=== PATIENT | female | born 1955 | race African-American/Black ===

== ENCOUNTER 2023-01-20 13:50 | Inpatient (IN) ==
[2023-01-20] MEDS ORDERED: PROVENTIL NEB TX 0.083% 2.5MG/ 3ML NEB PRN (16:30)
[2023-01-20 17:27] VITALS: TEMP 97.8
[2023-01-20 17:37] LABS: BASOPHILS % (AUTO) 0.4 % (0.2-1.0); EOSINOPHILS # (AUTO) 0.1 x10^3/uL (0.0-0.2); EOSINOPHILS % (AUTO) 1.9 % (0.9-2.9); HEMATOCRIT 34.5 % (36.0-47.0); HEMOGLOBIN 11.6 g/dL (12.0-16.0); MEAN CORPUSCULAR HEMOGLOBIN 29.7 pg (27.0-34.0); MEAN CORPUSCULAR HGB CONC 33.5 g/dL (33.0-35.0); MEAN CORPUSCULAR VOLUME 88.7 fL (80.0-100.0); MEAN PLATELET VOLUME 8.5 fL (7.4-11.0); MONOCYTES # (AUTO) 0.7 x10^3/uL (0.3-0.8); MONOCYTES % (AUTO) 9.3 % (0.0-13.0); NEUTROPHILS # (AUTO) 4.2 x10^3/uL (2.2-4.8); NEUTROPHILS % (AUTO) 60.4 % (42.0-75.0); PLATELET COUNT 287 X10^3/uL (150.0-450.0); RED BLOOD COUNT 3.89 X10^6/uL (3.5-5.4); RED CELL DISTRIBUTION WIDTH 15.3 % (11.6-16.5)
[2023-01-20] MEDS ORDERED: REGLAN TAB 5 MG PO PRN (17:39)
[2023-01-20] MEDS ORDERED: NEURONTIN CAP 100 MG PO SCH ×2 (17:45→21:00)
[2023-01-20 17:54] LABS: ALBUMIN 2.8 g/dL (3.4-5.0); CALCIUM 9.3 mg/dL (8.5-10.1); CARBON DIOXIDE 27.2 mmol/L (21-32); COR CA(FOR HYPOALB) 10.3 mg/dL (8.5-10.1); CREATININE 1.67 mg/dL (0.55-1.02); POTASSIUM 4.3 mmol/L (3.5-5.1)
[2023-01-20] MEDS ORDERED: SOMA TAB 350 MG PO PRN (17:55)
[2023-01-20] MEDS ORDERED: LR 1,000 ML IV 1,000 ML IV SCH (18:00)
[2023-01-20 20:18] VITALS: BMI 33.8
[2023-01-20] MEDS ORDERED: OMNIPAQUE 350 mg/mL 50 mL BTL 50 ML ONE (20:18)
[2023-01-20] MEDS ORDERED: OMNIPAQUE 350 mg/mL 100 mL BTL 100 ML ONE (20:18)
[2023-01-20] MEDS ORDERED: NS 100 ML IV 100 ML ONE (20:18)
[2023-01-20 20:50] VITALS: BP 188/78; PULSE 91; RESP 20; O2SAT 76
[2023-01-20] MEDS ORDERED: BUSPAR PO SCH (21:00)
[2023-01-20] MEDS ORDERED: COREG TAB 25 MG PO SCH (21:00)
[2023-01-20] MEDS ORDERED: DIOVAN TAB 160 MG PO SCH (21:00)
[2023-01-20] MEDS ORDERED: DESYREL PO SCH (21:00)
[2023-01-20] MEDS ORDERED: LIPITOR TAB 40 MG PO SCH (21:00)
[2023-01-20] MEDS ORDERED: NORVASC TAB 5 MG PO SCH (21:00)
--- NOTE | 2023-01-20 23:40 | DR.H&P ---
H&P History & Physical for Day of: H&P Date: 01/20/23 Chief Complaint Chief Complaint: Pain of right leg with multiple non- healing wounds to medial calf and foot. Allergies Allergies Allergy/AdvReac Type Severity Reaction Status Date / Time neisha Allergy Unknown Verified 01/20/23 21:07 neisha flavor Allergy Unknown Verified 01/20/23 21:07 peach Allergy Unknown Verified 01/20/23 21:07 plum Allergy Unknown Verified 01/20/23 21:07 History of Present Illness History of Present Illness: I received a call earlier today about this patient from Dr. Barney Emery in [place], [place]. He presented this 67 year-old female with a two-month history of increasing pain in right leg with non-healing wounds to the right medial calf proximally and distally. Patient has palpable pulse is on the left side but not on the right side at the ankle. She is admitted for IV antibiotics and evaluation for possible peripheral artery intervention of the right leg. Patient with history of recent diagnosis of congestive heart failure had cardiac catheterization in [place]. I will obtain a copy of this procedure. Past Medical History Past Medical History: Anxiety, Arthritis, CHF, Depression, Diabetes, Dyslipidemia, GERD and Hypertension Past Surgical History Surgical History: Other Family History Family Medical History: Diabetes Mellitus, Coronary Artery Disease and Hypertension Social History Does patient currently use any type of tobacco product: No Have you used tobacco products in the last 12 months: No Type of Tobacco Use: None Does any household member use tobacco: No Alcohol Use: None Drug Use: None Medications Home Medications: Home Medications Medication Instructions Recorded Confirmed Type gabapentin 100 mg capsule 300 mg PO HS 01/20/23 01/20/23 History gabapentin 100 mg tablet 100 mg PO BID 01/20/23 01/20/23 History insulin detemir U-100 100 unit/mL 40 unit subcut BID 01/20/23 01/20/23 History (3 mL) subcutaneous pen Labs 01/20/23 17:25 01/20/23 17:25 Labs: 01/20/23 18:30 Leg - Right Wound Gram Stain - Final Laboratory WBC 7.0 X10^3/uL (3.6-10.0) 01/20/23 17:25 RBC 3.89 X10^6/uL (3.5-5.4) 01/20/23 17:25 Hgb 11.6 g/dL (12.0-16.0) L 01/20/23 17: Hct 34.5 % (36.0-47.0) L 01/20/23 17: MCV 88.7 fL (80.0-100.0) 01/20/23 17:25 MCH 29.7 pg (27.0-34.0) 01/20/23: MCHC 33.5 g/dL (33.0-35.0) 01/20/23: RDW 15.3 % (11.6-16.5) 01/20/23: Plt Count 287 X10^3/uL (150.0-450.0) 01/20/23: MPV 8.5 fL (7.4-11.0) 01/20/23: Neut % (Auto) 60.4 % (42.0-75.0) 01/20/23: Lymph % (Auto) 28.0 % (21.0-51.0) 01/20/23 17: [place] % (Auto) 9.3 % (0.0-13.0) 01/20/23: Eos % (Auto) 1.9 % (0.9-2.9) 01/20/23: Baso % (Auto) 0.4 % (0.2-1.0) 01/20/23: Neut # (Auto) 4.2 x10^3/uL (2.2-4.8) 01/20/23: Lymph # (Auto) 2.0 X10^3/uL (1.3-2.9) 01/20/23 17:25 [place] # (Auto) 0.7 x10^3/uL (0.3-0.8) 01/20/23: Eos # (Auto) 0.1 x10^3/uL (0.0-0.2) 01/20/23: Baso # (Auto) 0.0 X10^3/uL (0.0-0.1) 01/20/23 17: Absolute Nucleated RBC 0.0 /100WBC 01/20/23 17:25 Sodium 136 mmol/L (136-145) 01/20/23 17:25 Corrected Sodium 139 mmol/L (136-145) 01/20/23 17:25 Potassium 4.3 mmol/L (3.5-5.1) 01/20/23 17:25 Chloride 101 mmol/L (98-107) 01/20/23 17:25 Carbon Dioxide 27.2 mmol/L (21-32) 01/20/23 17:25 BUN 53 mg/dL (7-18) H 01/20/23 17:25 Creatinine 1.67 mg/dL (0.55-1.02) H 01/20/23 17:25 Est GFR (MDRD) Af Amer 39 (>60) L 01/20/23 17:25 Est GFR (MDRD) Non-Af 33 (>60) L 01/20/23 17:25 Glucose 232 mg/dL (65-99) H 01/20/23 17:25 Calcium 9.3 mg/dL (8.5-10.1) 01/20/23 17:25 Corrected Calcium 10.3 mg/dL (8.5-10.1) H 01/20/23 17:25 Total Bilirubin 0.20 mg/dL (0.2-1.0) 01/20/23 17:25 AST 12 Units/L (15-37) L 01/20/23 17:25 ALT 15 Units/L (12-78) 01/20/23 17:25 Alkaline Phosphatase 150 Units/L (46-116) H 01/20/23 17:25 Total Protein 8.0 g/dL (6.4-8.2) 01/20/23 17:25 Albumin 2.8 g/dL (3.4-5.0) L 01/20/23 17:25 Globulin 5.2 g/dL (2.5-4.5) H 01/20/23 17:25 Albumin/Globulin Ratio 0.5 Ratio (1.1-2.1) L 01/20/23 17:25 Review of Systems Constitutional: See HPI Eyes: No Symptoms Reported ENT: No Symptoms Reported Respiratory: No Symptoms Reported; denies Shortness of Breath Cardiovascular: See HPI; denies Chest Pain Gastrointestinal: No Symptoms Reported Genitourinary: No Symptoms Reported Musculoskeletal: No Symptoms Reported Skin: See HPI Neurological: No Symptoms Reported Physical Exam Vital Signs: Vital Signs Temperature 97.8 F Temperature 97.8 F Pulse Rate [Bilateral Radial] 81 Pulse Rate [Bilateral Radial] 81 Pulse Rate 91 Pulse Rate 82 Pulse Rate 80 Pulse Rate 83 Pulse Rate 80 Pulse Rate 80 Pulse Rate 80 Pulse Rate 81 Pulse Rate 83 Pulse Rate 81 Pulse Rate 81 Respiratory Rate 20 Respiratory Rate 17 Respiratory Rate 11 Respiratory Rate 12 Respiratory Rate 11 Respiratory Rate 19 Respiratory Rate 10 Respiratory Rate 14 Respiratory Rate 14 Respiratory Rate 14 Respiratory Rate 14 Respiratory Rate 14 Blood Pressure [Left Arm] 145/65 Blood Pressure [Left Arm] 145/65 Blood Pressure 188/78 Blood Pressure 178/73 Blood Pressure 145/65 Blood Pressure 145/65 O2 Sat by Pulse Oximetry 76 O2 Sat by Pulse Oximetry 100 O2 Sat by Pulse Oximetry 100 O2 Sat by Pulse Oximetry 99 O2 Sat by Pulse Oximetry 100 O2 Sat by Pulse Oximetry 99 O2 Sat by Pulse Oximetry 100 O2 Sat by Pulse Oximetry 100 O2 Sat by Pulse Oximetry 100 O2 Sat by Pulse Oximetry 96 O2 Sat by Pulse Oximetry 100 O2 Sat by Pulse Oximetry 96 O2 Sat by Pulse Oximetry 100 Vitals 01/20/23 19:16 01/20/23 19:17 01/20/23 19:17 Pulse Rate 83 81 Respiratory Rate 14 10 L Respiratory Depth Respiratory Effort Respiratory Pattern O2 Sat by Pulse Oximetry 100 100 Oxygen Delivery Method Blood Pressure 178/73 Blood Pressure Mean 105 01/20/23 19:30 01/20/23 19:45 01/20/23 20:00 Pulse Rate 80 80 80 Respiratory Rate 19 11 L 12 Respiratory Depth Respiratory Effort Respiratory Pattern O2 Sat by Pulse Oximetry 100 99 100 Oxygen Delivery Method Blood Pressure Blood Pressure Mean 01/20/23 20:00 01/20/23 20:15 01/20/23 20:30 Pulse Rate 80 82 Respiratory Rate 11 L 17 Respiratory Depth Respiratory Effort Respiratory Pattern O2 Sat by Pulse Oximetry 100 100 Oxygen Delivery Method Blood Pressure 188/78 Blood Pressure Mean 112 01/20/23 20:45 01/20/23 20:10 01/20/23 20:10 Pulse Rate 91 H 83 Respiratory Rate 20 Respiratory Depth Normal Respiratory Effort Normal Non-Labored Respiratory Pattern Normal O2 Sat by Pulse Oximetry 76 L 99 Oxygen Delivery Method Room Air Blood Pressure Blood Pressure Mean Oriented: Normal, Time, Person and Place Eyes: Normal Ear: Normal Nose: Normal Throat: Normal Respiratory: Clear Throughout Cardiovascular: Normal and Other (no JVD, palpable pulses left leg including femoral and ankle. Weakly palpable pulse in the right groin and absent pulses right ankle ) : Normal Auscultation: Bowel Sounds: Normal Palpation: Normal Tenderness: Normal Skin: Other (4 cm diameter wound proximal right medial calf with eschar , 3x 3 x 1 cm wound to medial distal calf, open with drainage ) Musculoskeletal: Normal Psychiatric: Normal Mood Description: Anxious Affect: Normal Speech Pattern: Clear Assessment/Plan (1) Atherosclerosis of [place] arteries of extremities with rest pain, right leg: Status: Acute Plan: Patient will be admitted and labs obtained. Will obtain CT angiogram of the aorta with bilateral runoff. This will help plan intervention of the arterial problems of the right leg. At that time will plan debridement of these wounds. In the meantime will continue IV antibiotics. (2) Diabetes mellitus: Qualifiers: Diabetes mellitus type: type 2 Status: Acute Plan: sliding scale insulin, q 6 HR finger stick blood sugars (3) Hypertension: Qualifiers: Hypertension type: essential hypertension Qualified Code(s): I10 - Essential (primary) hypertension Status: Acute Plan: home medicationswell I'm sorry (4) Congestive heart failure (CHF): Status: Acute Plan: home medications, stable . Will obtain copy of catherization recently done in [place]. Review H&P Reviewed: Yes Patient was examined?: Yes
--- NOTE | 2023-01-20 23:46 | NOTE.SOAP ---
Soap Note Note for Day of Date of Exam: 01/20/23 Subjective Data Subjective Data: Patient admitted with severe ischemia of the right leg with non-healing wound . I discussed this adPlease mission with the patient and with her daughters. The patient's sister arrived and talked her into leaving against medical advice. Objective Data Pulse Rate: 91 Respiratory Rate: 20 O2 Sat by Pulse Oximetry: 76 Objective Data: Hgb=12.0, WBC=7.0, Cr=1.67 Assessment Assessment: critical limb threatening ischemia right leg with non-healing wounds Plan Plan: patient left against medical advice.
[2023-01-21] MEDS ORDERED: PROTONIX TAB 40 MG PO SCH (09:00)
[2023-01-21] MEDS ORDERED: MICRO K EXTEN CAP 10 MEQ PO SCH (09:00)
[2023-01-21] MEDS ORDERED: ASPIRIN EC 81 MG PO SCH (09:00)
[2023-01-21] MEDS ORDERED: ALDACTONE TAB 25 MG PO SCH (09:00)
[2023-01-21] MEDS ORDERED: LASIX PO SCH (09:00)
[2023-01-21] MEDS ORDERED: CHLORTHALIDONE PO SCH (09:00)
[2023-01-21] MEDS ORDERED: LINZESS PO SCH (09:00)
[2023-01-21] MEDS ORDERED: FARXIGA PO SCH (09:00)
== END 2023-01-20 20:50 | disposition left against medical advice (07) | DRG 301 ==
LOC: ICU 15:36
PROVIDERS: ADMIT Surgery; ATTEND Surgery
DX: S81.801A Unspecified open wound, right lower leg, initial encounter; I50.9 Heart failure, unspecified; B96.89 Other specified bacterial agents as the cause of diseases classified elsewhere; M79.604 Pain in right leg; X58.XXXA Exposure to other specified factors, initial encounter; K21.9 Gastro-esophageal reflux disease without esophagitis; Y92.9 Unspecified place or not applicable; E78.2 Mixed hyperlipidemia; Z53.29 Procedure and treatment not carried out because of patient's decision for other reasons; I70.221 Atherosclerosis of native arteries of extremities with rest pain, right leg; R26.81 Unsteadiness on feet; E11.65 Type 2 diabetes mellitus with hyperglycemia; I11.0 Hypertensive heart disease with heart failure

== ENCOUNTER 2023-03-18 12:09 | Inpatient (IN) ==
[2023-03-18 12:29] VITALS: BMI 38.4
--- NOTE | 2023-03-18 12:43 | ED.ABDFE ---
HPI Time Seen Time Seen by Provider: 03/18/23 12:42 PCP Primary Care Physician: Nir FP Complaint Doctors Chief Complaint Comments: 67-year-old female presents for evaluation. Patient with history of chronic edema, CHF in the past. Ran out of her diuretic medication recently. Having increasing swelling of her bilateral legs. Being treated for chronic wound of her right foot. Was seen by the wound center today, and sent to the ER for us to get some fluid out of her body. Having episode of shortness of breath at the time. Denies cough, fever, chills. No nausea, vomiting, chest pain, or bladder issues. Lites chronic constipation. Chief Complaint:: Pt states "I've got this fluid to come off me". Pt went to the wound dr this morning and was advised to come to ER to have fluid removed. Pt states the fluid in LEs swells so much that her legs "bust" and cause wounds. Pt states she has fluid in her lower abdomen also which she feels is causing her SOB. Pt c/o pain in LEs today d/t she just left wound care clinic in [place] today. Self Treatment fo Chief Complaint: Pt states she did take her "water Pill" today. COVID-19 Coronavirus risk:travel/contact w/high risk person: No Has patient experienced Coronavirus symptoms: Yes Coronavirus symptoms experienced: Shortness of Breath Reviewed Nurses Notes Review: Yes Source History Provided: Patient Mode of arrival Mode of Arrival: Wheelchair Timing Onset of Chief Complaint: 03/18/23 PMH PMH Past Medical History: Yes Past Medical History: Anxiety, Arthritis, CHF, Depression, Diabetes, Dyslipidemia, Migraines, GERD, Headaches and Hypertension Past Surgical History: Yes Surgical History: Ortho Surgery and Other Past Surgical History Comment: wound care clinic today Family History History of Family Medical Conditions: Yes Family Medical History: Diabetes Mellitus, Cancer, Coronary Artery Disease, Heart Failure and Hypertension Social History Does patient currently use any type of tobacco product: No Have you used tobacco products in the last 12 months: No Type of Tobacco Use: None Does any household member use tobacco: No Alcohol Use: None Do you use any recreational Drugs:: No Lives With: Alone Lives Where: Home Travel Risk Coronavirus risk:travel/contact w/high risk person: No Has patient experienced Coronavirus symptoms: Yes Coronavirus symptoms experienced: Shortness of Breath Infectious screening In the last 2 months have you had wt loss of >10#?: NO Have you had fever, night sweats or hemotysis?: No Have you traveled outside the country in the last 6 months?: No Isolation: Contact ROS Review of Systems Constitutional: No Symptoms Reported Eyes: No Symptoms Reported ENTM: No Symptoms Reported Respiratoy: Short of Breath Cardiovascular: Edema Gastrointestinal/Abdominal: No Symptoms Reported Genitourinary: No Symptoms Reported Neurological: No Symptoms Reported Musculoskeletal: No Symptoms Reported Integumentary: No Symptoms Reported All Other Systems: Reviewed and Negative PE Vital Signs Vitals: Vital Signs Temperature 97.9 F Pulse Rate 65 Respiratory Rate 16 Blood Pressure 164/67 O2 Sat by Pulse Oximetry 99 General General Appearance: Alert and In No Apparent Distress Eyes Eye exam: PERRL and EOMI ENT ENT Exam: Mucous Membranes Moist Neck Neck Exam: Normal Inspection; negative Tenderness Respiratory Respiratory Exam: Normal Lung Sounds Bilat and Other (poulse ox good); negative Accessory Muscle Use or Respiratory Distress Cardiovascular Cardiovascular Exam: Regular Rate, Normal Rhythm and Normal Heart Sounds Abdominal Exam Abdominal Exam: Normal Bowel Sounds and Soft; negative Tenderness Extremeties Extremities Exam: Edema (3+ pitting, bilateral lower extremities) Neurologic Neurological Exam: Alert, Oriented X3 and CN II-XII Intact; negative Motor Sensory Deficit Skin Skin Exam: Warm and Dry COURSE Treatment Treatment: 67-year-old female with worsening peripheral edema past few days. Recently out of her diuretic medications. Patient is stable in no distress. P ulse ox good at rest. Initiated. Patient given IV Lasix, 40 mgs. 1427 -labs show mild anemia, hemoglobin 7.9. Chemistries show mild elevation glucose of 215, patient is a diabetic. BNP is elevated 2380. Chest x-ray shows degree of cardiomegaly with changes consistent with congestive heart failure. Recommend observation admission for further diuresis. Discussed with Dr. Adam, education director today for the hospital, accepts the admission. 1551 -patient provided urine sample, has 10-20 white blood cells per high-power field, consistent with UTI. Will treat with daily IV Rocephin for now. ROR Labs Reviewed Laboratory Results Reviewed?: Yes 03/18/23 13:08 03/18/23 13:08 Laboratory: WBC 6.4 X10^3/uL (3.6-10.0) 03/18/23 13:08 RBC 2.64 X10^6/uL (3.5-5.4) L 03/18/23 13:08 Hgb 7.9 g/dL (12.0-16.0) L 03/18/23 13:08 Hct 24.5 % (36.0-47.0) L 03/18/23 13:08 MCV 92.8 fL (80.0-100.0) 03/18/23 13:08 MCH 29.8 pg (27.0-34.0) 03/18/23 13:08 MCHC 32.1 g/dL (33.0-35.0) L 03/18/23 13:08 RDW 16.7 % (11.6-16.5) H 03/18/23 13:08 Plt Count 306 X10^3/uL (150.0-450.0) 03/18/23 13:08 MPV 7.9 fL (7.4-11.0) 03/18/23 13:08 Neut % (Auto) 76.7 % (42.0-75.0) H 03/18/23 13:08 Lymph % (Auto) 15.3 % (21.0-51.0) L 03/18/23 13:08 [place] % (Auto) 5.5 % (0.0-13.0) 03/18/23 13:08 Eos % (Auto) 1.4 % (0.9-2.9) 03/18/23 13:08 Baso % (Auto) 1.1 % (0.2-1.0) H 03/18/23 13:08 Neut # (Auto) 4.9 x10^3/uL (2.2-4.8) H 03/18/23 13:08 Lymph # (Auto) 1.0 X10^3/uL (1.3-2.9) L 03/18/23 13:08 [place] # (Auto) 0.3 x10^3/uL (0.3-0.8) 03/18/23 13:08 Eos # (Auto) 0.1 x10^3/uL (0.0-0.2) 03/18/23 13:08 Baso # (Auto) 0.1 X10^3/uL (0.0-0.1) 03/18/23 13:08 Absolute Nucleated RBC 0.1 /100WBC 03/18/23 13:08 Sodium 136 mmol/L (136-145) 03/18/23 13:08 Corrected Sodium 139 mmol/L (136-145) 03/18/23 13:08 Potassium 4.7 mmol/L (3.5-5.1) 03/18/23 13:08 Chloride 101 mmol/L (98-107) 03/18/23 13:08 Carbon Dioxide 27.9 mmol/L (21-32) 03/18/23 13:08 BUN 45 mg/dL (7-18) H 03/18/23 13:08 Creatinine 1.47 mg/dL (0.55-1.02) H 03/18/23 13:08 Est GFR (MDRD) Af Amer 46 (>60) L 03/18/23 13:08 Est GFR (MDRD) Non-Af 38 (>60) L 03/18/23 13:08 Glucose 215 mg/dL (65-99) H 03/18/23 13:08 Calcium 8.5 mg/dL (8.5-10.1) 03/18/23 13:08 Corrected Calcium 9.4 mg/dL (8.5-10.1) 03/18/23 13:08 Total Bilirubin 0.40 mg/dL (0.2-1.0) 03/18/23 13:08 AST 8 Units/L (15-37) L 03/18/23 13:08 ALT 19 Units/L (12-78) 03/18/23 13:08 Alkaline Phosphatase 181 Units/L (46-116) H 03/18/23 13:08 Troponin I High Sens 16.0 ng/L (4.0-60.0) 03/18/23 13:08 B-Natriuretic Peptide 2380 pg/mL (0-79) H 03/18/23 13:08 Total Protein 7.3 g/dL (6.4-8.2) 03/18/23 13:08 Albumin 2.9 g/dL (3.4-5.0) L 03/18/23 13:08 Globulin 4.4 g/dL (2.5-4.5) 03/18/23 13:08 Albumin/Globulin Ratio 0.7 Ratio (1.1-2.1) L 03/18/23 13:08 Lipase 110 Units/L (16-77) H 03/18/23 13:08 Specimen Type Clean catch urine 03/18/23 15:11 Urine Color Straw (YELLOW) 03/18/23 15:11 Urine Appearance Hazy (CLEAR) 03/18/23 15:11 Urine pH 6.0 (5.0 - 8.0) 03/18/23 15:11 Ur Specific [place] 1.010 (1.000-1.030) 03/18/23 15:11 Urine Protein 2+ (NEGATIVE) 03/18/23 15:11 Urine Glucose (UA) 3+ (NEGATIVE) 03/18/23 15:11 Urine Ketones Negative (NEGATIVE) 03/18/23 15:11 Urine Blood 2+ (NEGATIVE) 03/18/23 15:11 Urine Nitrite Negative (NEGATIVE) 03/18/23 15:11 Urine Bilirubin Negative (NEGATIVE) 03/18/23 15:11 Urine Urobilinogen Normal (NORMAL) 03/18/23 15:11 Ur Leukocyte Esterase 3+ (NEGATIVE) 03/18/23 15:11 Urine RBC 0-2 /HPF (0-3) 03/18/23 15:11 Urine WBC 10-20 /HPF (0-5) A 03/18/23 15:11 Ur Squamous Epith Cells Rare /HPF (NEGATIVE) 03/18/23 15:11 Urine Bacteria Trace /HPF (NEGATIVE) 03/18/23 15:11 Ur Culture Indicated? Yes/culture set up 03/18/23 15:11 XRAY XRAY Interpreted by: Both X-ray Results: EXAM: CHEST, 1 VIEW HISTORY: H/O CHF; COMPARISON: No relevant prior studies were available at the time of interpretation. TECHNIQUE: CHEST, 1 VIEW FINDINGS: Chest: Lines and tubes: None Mediastinum: Cardiomegaly. Pulmonary vessels: There is pulmonary vascular congestion. Lung [place]: Patchy opacities are seen Pleura: No effusion. No pneumothorax. Bones and soft tissues: No acute osseous or soft tissue abnormality. IMPRESSION: 1. Findings suggest heart failure exacerbation THIS IS AN ELECTRONICALLY VERIFIED FINAL REPORT 03/18/2023 1:14 PM - Electronically signed by Bladimir Lujan MD Opioid Opioid Risk Tool Age ([place] box if 16-45): No History of Preadolescent Sexual Abuse: No Total: 0 Total Score Risk Category: Low Risk Copyright: Unruly BOOGIE predicting aberrant behaviors Discharge Plan Diagnosis Discharge Problem: Acute exacerbation of CHF (congestive heart failure), Exertional dyspnea, Acute UTI Discharge Plan Patient Disposition: 09 ADMITTED INPATIENT Condition: Stable Orders to Discharge Patient Discharge Orders: Transfer (Routine); Ordered 03/18/23 Ordered By: Adalid Prabhakar
[2023-03-18] MEDS ORDERED: LASIX IVP ONE ×2 (12:51→12:54)
[2023-03-18 13:15] LABS: BASOPHILS # (AUTO) 0.1 X10^3/uL (0.0-0.1); BASOPHILS % (AUTO) 1.1 % (0.2-1.0); EOSINOPHILS # (AUTO) 0.1 x10^3/uL (0.0-0.2); EOSINOPHILS % (AUTO) 1.4 % (0.9-2.9); HEMATOCRIT 24.5 % (36.0-47.0); HEMOGLOBIN 7.9 g/dL (12.0-16.0); LYMPHOCYTES % (AUTO) 15.3 % (21.0-51.0); MEAN CORPUSCULAR HEMOGLOBIN 29.8 pg (27.0-34.0); MEAN CORPUSCULAR HGB CONC 32.1 g/dL (33.0-35.0); MEAN CORPUSCULAR VOLUME 92.8 fL (80.0-100.0); MEAN PLATELET VOLUME 7.9 fL (7.4-11.0); MONOCYTES # (AUTO) 0.3 x10^3/uL (0.3-0.8); MONOCYTES % (AUTO) 5.5 % (0.0-13.0); NEUTROPHILS # (AUTO) 4.9 x10^3/uL (2.2-4.8); NEUTROPHILS % (AUTO) 76.7 % (42.0-75.0); PLATELET COUNT 306 X10^3/uL (150.0-450.0); RED BLOOD COUNT 2.64 X10^6/uL (3.5-5.4); RED CELL DISTRIBUTION WIDTH 16.7 % (11.6-16.5); WHITE BLOOD COUNT 6.4 X10^3/uL (3.6-10.0)
--- NOTE | 2023-03-18 13:22 | RAD ---
EXAM:CHEST, 1 VIEWHISTORY:H/O CHF;COMPARISON:No relevant prior studies were available at the time of interpretation.TECHNIQUE:CHEST, 1 VIEWFINDINGS:Chest:Lines and tubes: NoneMediastinum: Cardiomegaly.Pulmonary vessels: There is pulmonary vascular congestion.Lung [place]: Patchy opacities are seenPleura: No effusion. No pneumothorax.Bones and soft tissues: No acute osseous or soft tissue abnormality.IMPRESSION:1. Findings suggest heart failure exacerbationTHIS IS AN ELECTRONICALLY VERIFIED FINAL [id number]/18/2023 1:14 PM - Electronically signed by Bladimir Lujan MD
[2023-03-18 13:44] LABS: ALBUMIN 2.9 g/dL (3.4-5.0); CALCIUM 8.5 mg/dL (8.5-10.1); CARBON DIOXIDE 27.9 mmol/L (21-32); COR CA(FOR HYPOALB) 9.4 mg/dL (8.5-10.1); CREATININE 1.47 mg/dL (0.55-1.02); POTASSIUM 4.7 mmol/L (3.5-5.1); TOTAL PROTEIN 7.3 g/dL (6.4-8.2)
[2023-03-18 15:17] LABS: BILIRUBIN,URINE NEGATIVE (NEGATIVE); BLOOD/HEMOGLOBIN,URINE 2+ (NEGATIVE); GLUCOSE, URINE 3+ (NEGATIVE); KETONES,URINE NEGATIVE (NEGATIVE); LEUKOCYTE ESTERASE ,URINE 3+ (NEGATIVE); NITRITES,URINE NEGATIVE (NEGATIVE); PROTEIN,URINE 2+ (NEGATIVE); UROBILINOGEN,URINE NORMAL (NORMAL)
[2023-03-18 15:28] LABS: APPEARANCE,URINE HAZY (CLEAR); BACTERIA,URINE TRACE /HPF (NEGATIVE); COLOR,URINE STRAW (YELLOW); RBC,URINE 0-2 /HPF (0-3); SQUAMOUS EPITHELIAL CELL,UR RARE /HPF (NEGATIVE)
[2023-03-18] MEDS ORDERED: ROCEPHIN VIAL 1 GRAM IVP STA (15:49)
[2023-03-18] MEDS ORDERED: ROCEPHIN VIAL 1 GRAM ONE (15:53)
[2023-03-18] MEDS ORDERED: CONSULT PHARMACY - POTASSIUM & MAGNESIUM XX SCH ×2 (16:16→18:00)
[2023-03-18] MEDS ORDERED: TESSALON PERLES PO PRN (16:16)
[2023-03-18] MEDS ORDERED: PROVENTIL NEB TX 0.083% 2.5MG/ 3ML IN PRN (16:16)
[2023-03-18] MEDS: ROCEPHIN VIAL 1 GRAM 1 G in NS 100 ML IV 100 ML IV SCH (17:17)
[2023-03-18] MEDS: LASIX IVP SCH (17:17)
[2023-03-18] MEDS: ENTRESTO 24/26 MG TABLET PO SCH ×2 (17:17→20:17)
[2023-03-18 18:05] LABS: BILIRUBIN,URINE NEGATIVE (NEGATIVE); BLOOD/HEMOGLOBIN,URINE 2+ (NEGATIVE); GLUCOSE, URINE 2+ (NEGATIVE); KETONES,URINE NEGATIVE (NEGATIVE); LEUKOCYTE ESTERASE ,URINE 3+ (NEGATIVE); NITRITES,URINE NEGATIVE (NEGATIVE); PROTEIN,URINE 2+ (NEGATIVE); UROBILINOGEN,URINE NORMAL (NORMAL)
[2023-03-18 18:15] LABS: APPEARANCE,URINE HAZY (CLEAR); COLOR,URINE STRAW (YELLOW)
[2023-03-18 18:17] LABS: BACTERIA,URINE TRACE /HPF (NEGATIVE); SQUAMOUS EPITHELIAL CELL,UR RARE /HPF (NEGATIVE); YEAST,URINE RARE /HPF (NEGATIVE)
[2023-03-18] MEDS ORDERED: GLUCOPHAGE ONE (20:04)
[2023-03-18] MEDS: ROXICODONE TAB 15 MG PO PRN (20:15)
[2023-03-18] MEDS: COREG TAB 25 MG PO SCH (20:15)
[2023-03-18] MEDS: PROVENTIL NEB TX 0.083% 2.5MG/ 3ML NEB PRN (20:15)
[2023-03-18] MEDS: BUSPAR PO SCH (20:16)
[2023-03-18] MEDS: LIPITOR TAB 40 MG PO SCH (20:17)
[2023-03-18] MEDS: GLUCOPHAGE PO SCH (20:17)
[2023-03-18] MEDS: DESYREL PO SCH (20:18)
[2023-03-18] MEDS: LEVEMIR SC SCH (20:39)
[2023-03-18] MEDS: MAG-OX TAB PO SCH ×2 (20:49→21:10)
[2023-03-18] MEDS ORDERED: DIOVAN TAB 160 MG PO SCH (21:00)
[2023-03-18] MEDS ORDERED: NORVASC TAB 5 MG PO SCH (21:00)
[2023-03-18] MEDS ORDERED: NEURONTIN CAP 100 MG PO SCH (21:00)
[2023-03-18] MEDS ORDERED: PROVENTIL NEB TX 0.083% 2.5MG/ 3ML NEB SCH (21:00)
[2023-03-19 05:49] LABS: BASOPHILS # (AUTO) 0.1 X10^3/uL (0.0-0.1); EOSINOPHILS # (AUTO) 0.1 x10^3/uL (0.0-0.2); EOSINOPHILS % (AUTO) 1.2 % (0.9-2.9); HEMATOCRIT 23.6 % (36.0-47.0); HEMOGLOBIN 7.6 g/dL (12.0-16.0); LYMPHOCYTES # (AUTO) 0.7 X10^3/uL (1.3-2.9); LYMPHOCYTES % (AUTO) 12.1 % (21.0-51.0); MEAN CORPUSCULAR HEMOGLOBIN 29.8 pg (27.0-34.0); MEAN CORPUSCULAR HGB CONC 32.3 g/dL (33.0-35.0); MEAN CORPUSCULAR VOLUME 92.4 fL (80.0-100.0); MEAN PLATELET VOLUME 8.1 fL (7.4-11.0); MONOCYTES # (AUTO) 0.5 x10^3/uL (0.3-0.8); MONOCYTES % (AUTO) 8.7 % (0.0-13.0); NEUTROPHILS # (AUTO) 4.2 x10^3/uL (2.2-4.8); PLATELET COUNT 278 X10^3/uL (150.0-450.0); RED BLOOD COUNT 2.55 X10^6/uL (3.5-5.4); RED CELL DISTRIBUTION WIDTH 17.1 % (11.6-16.5); WHITE BLOOD COUNT 5.5 X10^3/uL (3.6-10.0)
--- NOTE | 2023-03-19 06:04 | RAD ---
HISTORYCHF Relevant Clinical InformationSTUDYCHEST, 1 VIEWCOMPARISONA a 03/18/2023FINDINGSThe trachea is midline. The cardiac silhouette is mildly enlarged.. There is patchy infiltrate or edema throughout the left lung. The right lung is clear. No pleural effusion or pneumothorax. The bony thorax is unremarkable.IMPRESSIONMild cardiomegalyPatchy infiltrate and/or edema throughout the left lung..Electronically signed by: Maikel Hargrove (Mar 19, 2023 06:03:46)
[2023-03-19 06:11] LABS: ALBUMIN 2.4 g/dL (3.4-5.0); CALCIUM 8.3 mg/dL (8.5-10.1); CARBON DIOXIDE 29.5 mmol/L (21-32); COR CA(FOR HYPOALB) 9.6 mg/dL (8.5-10.1); CREATININE 1.53 mg/dL (0.55-1.02); MAGNESIUM 1.8 mg/dL (2.0-2.9); POTASSIUM 4.7 mmol/L (3.5-5.1); TOTAL PROTEIN 6.7 g/dL (6.4-8.2)
[2023-03-19] MEDS ORDERED: CONSULT PHARMACY - POTASSIUM & MAGNESIUM XX SCH (07:00)
[2023-03-19] MEDS ORDERED: GLUCOPHAGE ONE ×2 (08:04→21:19)
[2023-03-19] MEDS: LINZESS PO SCH (08:13)
[2023-03-19] MEDS: CHLORTHALIDONE PO SCH (08:14)
[2023-03-19] MEDS: FARXIGA PO SCH (08:15)
[2023-03-19] MEDS: ASPIRIN EC 81 MG PO SCH (08:16)
[2023-03-19] MEDS: PROTONIX TAB 40 MG PO SCH (08:17)
[2023-03-19] MEDS: AMARYL TAB 4 MG PO SCH (08:18)
[2023-03-19] MEDS: COREG TAB 25 MG PO SCH ×2 (08:18→22:30)
[2023-03-19] MEDS: BUSPAR PO SCH ×2 (08:19→21:00)
[2023-03-19] MEDS: ENTRESTO 24/26 MG TABLET PO SCH ×2 (08:19→22:29)
[2023-03-19] MEDS: GLUCOPHAGE PO SCH ×2 (08:20→21:00)
[2023-03-19] MEDS: MAG-OX TAB PO SCH ×3 (08:21→21:00)
[2023-03-19] MEDS: MICRO K EXTEN CAP 10 MEQ PO SCH (08:22)
[2023-03-19] MEDS: LASIX IVP SCH ×2 (08:24→17:11)
[2023-03-19] MEDS ORDERED: ALDACTONE TAB 25 MG PO SCH (09:00)
[2023-03-19] MEDS ORDERED: NS 250 ML IV 250 ML IV ONE (09:45)
[2023-03-19] MEDS: ROCEPHIN VIAL 1 GRAM 1 G in NS 100 ML IV 100 ML IV SCH (09:48)
[2023-03-19] MEDS: ROXICODONE TAB 15 MG PO PRN (09:59)
[2023-03-19] MEDS ORDERED: LEVAQUIN PREMIX IV 500 MG 500 MG/100 ML BAG IV ONE (10:00)
[2023-03-19] MEDS: NS 250 ML IV 250 ML IV SCH (10:03)
[2023-03-19] MEDS: LEVEMIR SC SCH ×2 (11:42→21:00)
--- NOTE | 2023-03-19 12:55 | DR.H&P ---
H&P History & Physical for Day of: H&P Date: 03/18/23 Chief Complaint Chief Complaint: Increasing shortness of breath with bilateral lower extremity edema. Allergies Allergies Allergy/AdvReac Type Severity Reaction Status Date / Time neisha Allergy Unknown Verified 02/21/23 04:56 neisha flavor Allergy Unknown Verified 02/21/23 04:56 peach Allergy Unknown Verified 02/21/23 04:56 plum Allergy Unknown Verified 02/21/23 04:56 History of Present Illness History of Present Illness: This is a 67-year-old black female well-known to me. She has a history of insulin-dependent diabetes mellitus type 2 is poorly controlled. Earlier in the day, she was at the wound care clinic in [place], [place], and it was noted that she is having a lot of generalized edema she was told by people there that she needed to go to the emergency department for them to get some fluid off of her. She came to the [facility] emergency department to have this done and the work-up found that she was anemic with a hemoglobin of 7.9 and a BNP was elevated at 2380. Her creatinine was slightly elevated at 1.47 and BUN was 45. She was found to have a urinary tract infection and to be hypoxic as well. Chest x-ray showed that she was fluid overloaded and because of all this we elected to go ahead and admit her for observation and start diuresis. She was given Lasix 40 mg IV every 12 hours and Hep-Lock her IV. I started her on Entresto twice daily as well, and we will plan on repeating routine labs as well as a chest x-ray and BNP tomorrow morning. Regarding the UTI the patient is being covered with Rocephin 1 g IV daily. We will follow-up with the culture when available. We will monitor daily CBCs to follow her hemoglobin and transfuse if needed. Her blood pressure is elevated upon admission so we will keep an eye on it and adjust her blood pressure medications as needed. We will give her supplemental O2 for hypoxia and watch for improvement. Past Medical History Past Medical History: Anxiety, Arthritis, CHF, Depression, Diabetes, Dyslipidemia, Migraines, GERD, Headaches and Hypertension Past Surgical History Surgical History: Unknown Family History Family Medical History: Diabetes Mellitus and Hypertension Social History Does patient currently use any type of tobacco product: No Have you used tobacco products in the last 12 months: No Type of Tobacco Use: None Does any household member use tobacco: No Alcohol Use: None Drug Use: None Medications Home Medications: Home Medications Medication Instructions Recorded Confirmed Type insulin detemir U-100 100 unit/mL 45 unit subcut BID 01/20/23 03/18/23 History (3 mL) subcutaneous pen albuterol sulfate 2.5 mg/3 mL 2.5 mg inhalation TID PRN 02/21/23 03/18/23 History (0.083 %) solution for nebulization amlodipine 5 mg tablet 5 mg PO BID 02/21/23 03/18/23 History aspirin 81 mg tablet,delayed 81 mg PO QDAY 02/21/23 03/18/23 History release atorvastatin 40 mg tablet 40 mg PO QHS 02/21/23 03/18/23 History buspirone 10 mg tablet 10 mg PO BID 02/21/23 03/18/23 History carisoprodol 350 mg tablet 350 mg PO TID 02/21/23 03/18/23 History carvedilol 25 mg tablet 25 mg PO BID 02/21/23 03/18/23 History chlorthalidone 25 mg tablet 25 mg PO QDAY 02/21/23 03/18/23 History dapagliflozin propanediol 10 mg 10 mg PO QDAY 02/21/23 03/18/23 History tablet (Farxiga) furosemide 20 mg tablet (Lasix) 20 mg PO QAM 02/21/23 03/18/23 History gabapentin 100 mg capsule 300 mg PO HS 02/21/23 03/18/23 History glimepiride 4 mg tablet 4 mg PO DAILY 02/21/23 03/18/23 History linaclotide 145 mcg capsule 145 mcg PO QDAY 02/21/23 03/18/23 History (Linzess) liraglutide 0.6 mg/0.1 mL (18 mg/3 1.2 mg subcut Q24H 02/21/23 03/18/23 History mL) subcutaneous pen injector (Victoza 3-Jenaro) metformin 1,000 mg tablet 1,000 mg PO BID 02/21/23 03/18/23 History metoclopramide HCl 5 mg tablet 5 mg PO QID PRN 02/21/23 03/18/23 History oxycodone 30 mg tablet 30 mg PO BID PRN Pain 02/21/23 03/18/23 History pantoprazole 40 mg tablet,delayed 40 mg PO QDAY 02/21/23 03/18/23 History release potassium chloride 10 mEq 10 meq PO DAILY 02/21/23 03/18/23 History tablet,extended release trazodone 150 mg tablet 150 mg PO HS 02/21/23 03/18/23 History valsartan 160 mg tablet 160 mg PO BID 02/21/23 03/18/23 History Labs 03/19/23 05:30 03/19/23 05:30 Labs: 03/18/23 15:11 Urine,Clean Catch Urine Culture - Preliminary Laboratory WBC 5.5 X10^3/uL (3.6-10.0) 03/19/23 05:30 RBC 2.55 X10^6/uL (3.5-5.4) L 03/19/23 05:30 Hgb 7.6 g/dL (12.0-16.0) L 03/19/23 05:30 Hct 23.6 % (36.0-47.0) L 03/19/23 05:30 MCV 92.4 fL (80.0-100.0) 03/19/23 05:30 MCH 29.8 pg (27.0-34.0) 03/19/23 05:30 MCHC 32.3 g/dL (33.0-35.0) L 03/19/23 05:30 RDW 17.1 % (11.6-16.5) H 03/19/23 05:30 Plt Count 278 X10^3/uL (150.0-450.0) 03/19/23 05:30 MPV 8.1 fL (7.4-11.0) 03/19/23 05:30 Neut % (Auto) 77.0 % (42.0-75.0) H 03/19/23 05:30 Lymph % (Auto) 12.1 % (21.0-51.0) L 03/19/23 05:30 [place] % (Auto) 8.7 % (0.0-13.0) 03/19/23 05:30 Eos % (Auto) 1.2 % (0.9-2.9) 03/19/23 05:30 Baso % (Auto) 1.0 % (0.2-1.0) 03/19/23 05:30 Neut # (Auto) 4.2 x10^3/uL (2.2-4.8) 03/19/23 05:30 Lymph # (Auto) 0.7 X10^3/uL (1.3-2.9) L 03/19/23 05:30 [place] # (Auto) 0.5 x10^3/uL (0.3-0.8) 03/19/23 05:30 Eos # (Auto) 0.1 x10^3/uL (0.0-0.2) 03/19/23 05:30 Baso # (Auto) 0.1 X10^3/uL (0.0-0.1) 03/19/23 05:30 Absolute Nucleated RBC 0.1 /100WBC 03/19/23 05:30 Sodium 138 mmol/L (136-145) 03/19/23 05:30 Corrected Sodium 139 mmol/L (136-145) 03/19/23 05:30 Potassium 4.7 mmol/L (3.5-5.1) 03/19/23 05:30 Chloride 103 mmol/L (98-107) 03/19/23 05:30 Carbon Dioxide 29.5 mmol/L (21-32) 03/19/23 05:30 BUN 46 mg/dL (7-18) H 03/19/23 05:30 Creatinine 1.53 mg/dL (0.55-1.02) H 03/19/23 05:30 Est GFR (MDRD) Af Amer 44 (>60) L 03/19/23 05:30 Est GFR (MDRD) Non-Af 36 (>60) L 03/19/23 05:30 Glucose 130 mg/dL (65-99) H 03/19/23 05:30 POC Glucose (mg/dL) 160 mg/dL (65-99) H 03/19/23 11:12 Lactic Acid 0.7 mmol/L (0.4-2.0) 03/19/23 08:51 Calcium 8.3 mg/dL (8.5-10.1) L 03/19/23 05:30 Corrected Calcium 9.6 mg/dL (8.5-10.1) 03/19/23 05:30 Magnesium 1.8 mg/dL (2.0-2.9) L 03/19/23 05:30 Total Bilirubin 0.30 mg/dL (0.2-1.0) 03/19/23 05:30 AST 9 Units/L (15-37) L 03/19/23 05:30 ALT 15 Units/L (12-78) 03/19/23 05:30 Alkaline Phosphatase 168 Units/L (46-116) H 03/19/23 05:30 Troponin I High Sens 16.0 ng/L (4.0-60.0) 03/18/23 13:08 B-Natriuretic Peptide 3640 pg/mL (0-79) H 03/19/23 05:30 Total Protein 6.7 g/dL (6.4-8.2) 03/19/23 05:30 Albumin 2.4 g/dL (3.4-5.0) L 03/19/23 05:30 Globulin 4.3 g/dL (2.5-4.5) 03/19/23 05:30 Albumin/Globulin Ratio 0.6 Ratio (1.1-2.1) L 03/19/23 05:30 Lipase 110 Units/L (16-77) H 03/18/23 13:08 Specimen Type Clean catch urine 03/18/23 17:50 Urine Color Straw (YELLOW) 03/18/23 17:50 Urine Appearance Hazy (CLEAR) 03/18/23 17:50 Urine pH 6.0 (5.0 - 8.0) 03/18/23 17:50 Ur Specific [place] 1.015 (1.000-1.030) 03/18/23 17:50 Urine Protein 2+ (NEGATIVE) 03/18/23 17:50 Urine Glucose (UA) 2+ (NEGATIVE) 03/18/23 17:50 Urine Ketones Negative (NEGATIVE) 03/18/23 17:50 Urine Blood 2+ (NEGATIVE) 03/18/23 17:50 Urine Nitrite Negative (NEGATIVE) 03/18/23 17:50 Urine Bilirubin Negative (NEGATIVE) 03/18/23 17:50 Urine Urobilinogen Normal (NORMAL) 03/18/23 17:50 Ur Leukocyte Esterase 3+ (NEGATIVE) 03/18/23 17:50 Urine RBC 5-10 /HPF (0-3) A 03/18/23 17:50 Urine WBC Tntc /HPF (0-5) A 03/18/23 17:50 Ur Squamous Epith Cells Rare /HPF (NEGATIVE) 03/18/23 17:50 Urine Bacteria Trace /HPF (NEGATIVE) 03/18/23 17:50 Urine Yeast Rare /HPF (NEGATIVE) 03/18/23 17:50 Ur Culture Indicated? No/not indicated 03/18/23 17:50 Review of Systems Constitutional: Weakness and Malaise Eyes: No Symptoms Reported ENT: No Symptoms Reported Respiratory: Cough, Shortness of Breath and SOB with Excertion; denies Hemoptysis or Pleuritic Pain Cardiovascular: Orthopnea and Light Headedness; denies Chest Pain Gastrointestinal: No Symptoms Reported Genitourinary: Dysuria, Frequency and Retention Musculoskeletal: Back Pain and Leg Pain Skin: Wound Neurological: Weakness and Numbness; denies Incoordination Physical Exam Vital Signs: Vital Signs Temperature 98.4 F Temperature 98.1 F Pulse Rate [Brachial] 58 Pulse Rate [Brachial] 65 Respiratory Rate 20 Respiratory Rate 18 Respiratory Rate 18 Respiratory Rate 20 Blood Pressure [Left Arm] 135/64 Blood Pressure [Left Arm] 145/62 O2 Sat by Pulse Oximetry 91 O2 Sat by Pulse Oximetry 99 Oriented: Normal, Time, Person and Place Eyes: Normal Ear: Normal Nose: Normal Throat: Normal Respiratory: Diminished Throughout; negative Rales Throughout Cardiovascular: Normal Auscultation: Bowel Sounds: Normal Palpation: Normal Tenderness: Normal Skin: Normal Musculoskeletal: Normal Psychiatric: Normal Mood Description: Calm Affect: Normal Speech Pattern: Clear and Appropriate Assessment/Plan (1) Acute exacerbation of CHF (congestive heart failure): Status: Acute Plan: Lasix 40 mg IV twice daily. Start Entresto as well twice daily (2) Acute UTI: Status: Acute Plan: IV Rocephin (3) Anemia: Status: Acute Plan: Follow daily CBCs. (4) Dyspnea: Status: Acute Plan: IV diuresis. Supplemental O2 via nasal cannula at 2 L. (5) Hypoxia: Status: Acute Plan: Monitor for improvement with IV diuresis. Continuous O2 monitoring. (6) Essential hypertension: Status: Acute Plan: Monitor daily blood pressure. Adjust blood pressure treatment if needed. (7) Insulin dependent type 2 diabetes mellitus: Status: None Review H&P Reviewed: Yes Patient was examined?: Yes
--- NOTE | 2023-03-19 16:20 | PCM.PROG ---
Progress Note Progress Note for Day of Date of Exam: 03/19/23 Subjective Subjective: The patient reports that she feels better this morning and is breathing better with less dyspnea. I see that her BNP has gone up just over thousand points since yesterday. She is being diuresed with Lasix 40 mg IV twice daily and I started her on Entresto yesterday afternoon. Her blood pr essure is better today and her O2 sat is still low in the low 90s. Her chest x- ray this morning showed that she has increased patchy infiltrates in the lungs which may be developing pneumonia. I went ahead and started her on IV Levaquin and we did sputum cultures today and blood cultures x2. The sputum cultures we did with a AIT so we will follow-up with the results soon as available. I will go ahead and add spironolactone 25 mg p.o. daily to see if we can diurese her more than we have been with the Lasix. We will continue the Entresto and I will plan to do a echocardiogram in the patient as well. Repeat BNP, reaching labs and chest x-ray again tomorrow. We will also check a lactic acid today. The patient's hemoglobin has dropped down to 7.6, but we have ordered a fecal occult blood stool test however the results are not back yet. We will start her on Protonix IV for GI protection. Past Medical Family Social History Allergies: Allergies neisha Allergy (Unknown, Verified 02/21/23 04:56) neisha flavor Allergy (Unknown, Verified 02/21/23 04:56) peach Allergy (Unknown, Verified 02/21/23 04:56) plum Allergy (Unknown, Verified 02/21/23 04:56) Review of Systems ROS: No change since H&P Vital Signs and I&O's Vital Signs: Vital Signs Temperature 98.4 F Pulse Rate [Brachial] 58 Respiratory Rate 20 Respiratory Rate 18 Respiratory Rate 18 Blood Pressure [Left Arm] 135/64 O2 Sat by Pulse Oximetry 91 Intake and Output: Intake & Output 03/17/23 03/18/23 03/19/23 03/20/23 11:59 11:59 11:59 11:59 Intake Total 500 / 500 600 / 600 Output Total 700 / 700 Balance -200 / -200 600 / 600 Physical Exam Oriented: Normal, Time, Person and Place Eyes: Normal Ear: Normal Nose: Normal Throat: Normal Respiratory: Generalized and Rhonchi; negative Rales Cardiovascular: Normal Auscultation: Bowel Sounds: Normal Tenderness: Normal Skin: Normal Musculoskeletal: Normal Psychiatric: Normal Mood Description: Calm Affect: Normal Speech Pattern: Clear and Appropriate Laboratory and Diagnostics 03/19/23 05:30 03/19/23 05:30 Labs: 03/19/23 12:43 Sputum - Expectorated Sputum - Final 03/18/23 15:11 Urine,Clean Catch Urine Culture - Preliminary Laboratory WBC 5.5 X10^3/uL (3.6-10.0) 03/19/23 05:30 RBC 2.55 X10^6/uL (3.5-5.4) L 03/19/23 05:30 Hgb 7.6 g/dL (12.0-16.0) L 03/19/23 05:30 Hct 23.6 % (36.0-47.0) L 03/19/23 05:30 MCV 92.4 fL (80.0-100.0) 03/19/23 05:30 MCH 29.8 pg (27.0-34.0) 03/19/23 05:30 MCHC 32.3 g/dL (33.0-35.0) L 03/19/23 05:30 RDW 17.1 % (11.6-16.5) H 03/19/23 05:30 Plt Count 278 X10^3/uL (150.0-450.0) 03/19/23 05:30 MPV 8.1 fL (7.4-11.0) 03/19/23 05:30 Neut % (Auto) 77.0 % (42.0-75.0) H 03/19/23 05:30 Lymph % (Auto) 12.1 % (21.0-51.0) L 03/19/23 05:30 [place] % (Auto) 8.7 % (0.0-13.0) 03/19/23 05:30 Eos % (Auto) 1.2 % (0.9-2.9) 03/19/23 05:30 Baso % (Auto) 1.0 % (0.2-1.0) 03/19/23 05:30 Neut # (Auto) 4.2 x10^3/uL (2.2-4.8) 03/19/23 05:30 Lymph # (Auto) 0.7 X10^3/uL (1.3-2.9) L 03/19/23 05:30 [place] # (Auto) 0.5 x10^3/uL (0.3-0.8) 03/19/23 05:30 Eos # (Auto) 0.1 x10^3/uL (0.0-0.2) 03/19/23 05:30 Baso # (Auto) 0.1 X10^3/uL (0.0-0.1) 03/19/23 05:30 Absolute Nucleated RBC 0.1 /100WBC 03/19/23 05:30 Sodium 138 mmol/L (136-145) 03/19/23 05:30 Corrected Sodium 139 mmol/L (136-145) 03/19/23 05:30 Potassium 4.7 mmol/L (3.5-5.1) 03/19/23 05:30 Chloride 103 mmol/L (98-107) 03/19/23 05:30 Carbon Dioxide 29.5 mmol/L (21-32) 03/19/23 05:30 BUN 46 mg/dL (7-18) H 03/19/23 05:30 Creatinine 1.53 mg/dL (0.55-1.02) H 03/19/23 05:30 Est GFR (MDRD) Af Amer 44 (>60) L 03/19/23 05:30 Est GFR (MDRD) Non-Af 36 (>60) L 03/19/23 05:30 Glucose 130 mg/dL (65-99) H 03/19/23 05:30 POC Glucose (mg/dL) 160 mg/dL (65-99) H 03/19/23 11:12 Lactic Acid 0.7 mmol/L (0.4-2.0) 03/19/23 08:51 Calcium 8.3 mg/dL (8.5-10.1) L 03/19/23 05:30 Corrected Calcium 9.6 mg/dL (8.5-10.1) 03/19/23 05:30 Magnesium 1.8 mg/dL (2.0-2.9) L 03/19/23 05:30 Total Bilirubin 0.30 mg/dL (0.2-1.0) 03/19/23 05:30 AST 9 Units/L (15-37) L 03/19/23 05:30 ALT 15 Units/L (12-78) 03/19/23 05:30 Alkaline Phosphatase 168 Units/L (46-116) H 03/19/23 05:30 Troponin I High Sens 16.0 ng/L (4.0-60.0) 03/18/23 13:08 B-Natriuretic Peptide 3640 pg/mL (0-79) H 03/19/23 05:30 Total Protein 6.7 g/dL (6.4-8.2) 03/19/23 05:30 Albumin 2.4 g/dL (3.4-5.0) L 03/19/23 05:30 Globulin 4.3 g/dL (2.5-4.5) 03/19/23 05:30 Albumin/Globulin Ratio 0.6 Ratio (1.1-2.1) L 03/19/23 05:30 Lipase 110 Units/L (16-77) H 03/18/23 13:08 Specimen Type Clean catch urine 03/18/23 17:50 Urine Color Straw (YELLOW) 03/18/23 17:50 Urine Appearance Hazy (CLEAR) 03/18/23 17:50 Urine pH 6.0 (5.0 - 8.0) 03/18/23 17:50 Ur Specific [place] 1.015 (1.000-1.030) 03/18/23 17:50 Urine Protein 2+ (NEGATIVE) 03/18/23 17:50 Urine Glucose (UA) 2+ (NEGATIVE) 03/18/23 17:50 Urine Ketones Negative (NEGATIVE) 03/18/23 17:50 Urine Blood 2+ (NEGATIVE) 03/18/23 17:50 Urine Nitrite Negative (NEGATIVE) 03/18/23 17:50 Urine Bilirubin Negative (NEGATIVE) 03/18/23 17:50 Urine Urobilinogen Normal (NORMAL) 03/18/23 17:50 Ur Leukocyte Esterase 3+ (NEGATIVE) 03/18/23 17:50 Urine RBC 5-10 /HPF (0-3) A 03/18/23 17:50 Urine WBC Tntc /HPF (0-5) A 03/18/23 17:50 Ur Squamous Epith Cells Rare /HPF (NEGATIVE) 03/18/23 17:50 Urine Bacteria Trace /HPF (NEGATIVE) 03/18/23 17:50 Urine Yeast Rare /HPF (NEGATIVE) 03/18/23 17:50 Ur Culture Indicated? No/not indicated 03/18/23 17:50 Radiology Reviewed: Yes Plan (1) Acute exacerbation of CHF (congestive heart failure): Status: Acute Plan: Lasix 40 mg IV twice daily. Start Entresto as well twice daily. Since the patient's BNP is going up I will add spironolactone 25 mg 1 p.o. daily. Recheck chest x-ray in a.m. as well as BNP. (2) Acute UTI: Status: Acute Plan: IV Rocephin. Follow-up urine culture and sensitivity when available. (3) Anemia: Status: Acute Plan: Follow daily CBCs. (4) Dyspnea: Status: Acute Plan: IV diuresis. Supplemental O2 via nasal cannula at 2 L. (5) Hypoxia: Status: Acute Plan: Monitor for improvement with IV diuresis. Continuous O2 monitoring. (6) Essential hypertension: Status: Acute Plan: Monitor daily blood pressure. Adjust blood pressure treatment if needed. (7) Insulin dependent type 2 diabetes mellitus: Status: None Plan: We will cover the patient's diabetes with a regular insulin sliding scale per protocol. (8) Pulmonary infiltrate on chest x-ray: Status: Acute Plan: Continue IV Rocephin and I will add IV Levaquin which will be renally dosed because of her chronic kidney disease. I will check sputum cultures with AIT labs and blood cultures x2. We will also check lactic acid.
[2023-03-19] MEDS: SANTYL EXT SCH (16:36)
[2023-03-19] MEDS: DESYREL PO SCH (21:00)
[2023-03-19] MEDS: NEURONTIN CAP 300 MG PO SCH (22:28)
[2023-03-19] MEDS: LIPITOR TAB 40 MG PO SCH (22:29)
[2023-03-20] MEDS: NS 250 ML IV 250 ML IV SCH ×2 (02:20→12:57)
[2023-03-20] MEDS ORDERED: D50W ABBOJECT SYR IV ONE (04:23)
[2023-03-20] MEDS ORDERED: D50W ABBOJECT SYR ONE (04:26)
[2023-03-20] MEDS: PROVENTIL NEB TX 0.083% 2.5MG/ 3ML NEB PRN ×2 (04:46→21:15)
[2023-03-20 06:14] LABS: BASOPHILS % (AUTO) 0.6 % (0.2-1.0); EOSINOPHILS % (AUTO) 0.1 % (0.9-2.9); HEMATOCRIT 23.9 % (36.0-47.0); HEMOGLOBIN 7.7 g/dL (12.0-16.0); LYMPHOCYTES # (AUTO) 0.7 X10^3/uL (1.3-2.9); LYMPHOCYTES % (AUTO) 15.1 % (21.0-51.0); MEAN CORPUSCULAR HGB CONC 32.2 g/dL (33.0-35.0); MEAN CORPUSCULAR VOLUME 93.1 fL (80.0-100.0); MEAN PLATELET VOLUME 8.5 fL (7.4-11.0); MONOCYTES # (AUTO) 0.4 x10^3/uL (0.3-0.8); NEUTROPHILS # (AUTO) 3.3 x10^3/uL (2.2-4.8); NEUTROPHILS % (AUTO) 75.2 % (42.0-75.0); PLATELET COUNT 260 X10^3/uL (150.0-450.0); RED BLOOD COUNT 2.57 X10^6/uL (3.5-5.4); WHITE BLOOD COUNT 4.4 X10^3/uL (3.6-10.0)
[2023-03-20 06:17] LABS: ALBUMIN 2.2 g/dL (3.4-5.0); CALCIUM 8.2 mg/dL (8.5-10.1); CARBON DIOXIDE 26.6 mmol/L (21-32); COR CA(FOR HYPOALB) 9.6 mg/dL (8.5-10.1); CREATININE 1.78 mg/dL (0.55-1.02); POTASSIUM 5.1 mmol/L (3.5-5.1); TOTAL PROTEIN 6.6 g/dL (6.4-8.2)
[2023-03-20] MEDS ORDERED: GLUCOPHAGE ONE (09:38)
[2023-03-20] MEDS: COREG TAB 25 MG PO SCH ×2 (09:45→20:37)
[2023-03-20] MEDS: LEVAQUIN PREMIX IV 250 MG 250 MG/50 ML BAG IV SCH (09:45)
[2023-03-20] MEDS: SANTYL EXT SCH (09:45)
[2023-03-20] MEDS: PROTONIX TAB 40 MG PO SCH (09:45)
[2023-03-20] MEDS: CHLORTHALIDONE PO SCH (09:45)
[2023-03-20] MEDS: BUSPAR PO SCH ×2 (09:45→20:57)
[2023-03-20] MEDS: FARXIGA PO SCH (09:45)
[2023-03-20] MEDS: LINZESS PO SCH (09:45)
[2023-03-20] MEDS: GLUCOPHAGE PO SCH (09:45)
[2023-03-20] MEDS: AMARYL TAB 4 MG PO SCH (09:45)
[2023-03-20] MEDS: ASPIRIN EC 81 MG PO SCH (09:45)
[2023-03-20] MEDS: LASIX IVP SCH ×2 (09:45→17:37)
[2023-03-20] MEDS: MICRO K EXTEN CAP 10 MEQ PO SCH (09:45)
[2023-03-20] MEDS: DIOVAN TAB 160 MG PO SCH ×2 (09:45→20:38)
[2023-03-20] MEDS: MAG-OX TAB PO SCH ×2 (09:45→20:36)
[2023-03-20] MEDS ORDERED: CONSULT PHARMACY - INSULIN ADJUSTMENT NEEDED XX SCH (10:00)
[2023-03-20] MEDS: LEVEMIR SC SCH (10:13)
[2023-03-20] MEDS: ROXICODONE TAB 15 MG PO PRN (10:56)
[2023-03-20] MEDS: ROCEPHIN VIAL 1 GRAM 1 G in NS 100 ML IV 100 ML IV SCH (11:15)
[2023-03-20] MEDS: PATIENT'S HOME MEDICATION PO SCH ×2 (13:26→21:02)
--- NOTE | 2023-03-20 13:45 | RAD ---
EXAM:Portable AP chestHISTORY:CHF hypertension diabetesCOMPARISON:March 19, 2023FINDINGS:Heart size remains borderline enlarged. There is interval improvement in appearance of the lungs with clearing of the previously noted airspace involvement in the left lung. There is persistent pulmonary vascular congestion.IMPRESSION:Interval improvement as noted. Stable cardiac prominence with residual mild pulmonary vascular congestion.THIS IS AN ELECTRONICALLY VERIFIED FINAL [id number]/20/2023 1:42 PM - Electronically signed by Aaron Kumar MD
[2023-03-20] MEDS ORDERED: GLUTOSE 15 GEL ORAL PO PRN (17:39)
[2023-03-20] MEDS ORDERED: NovoLIN R (or HumuLIN R) SUBCUT PRN (18:31)
--- NOTE | 2023-03-20 20:33 | PCM.PROG ---
Progress Note Progress Note for Day of Date of Exam: 03/20/23 Subjective Subjective: The patient is admitted here for CHF exacerbation, COVID-19 diagnosed today, pulmonary infiltrate by chest x-ray. She is currently been getting better we have been diuresing her and her BNP is down to the 2000's today down from the 3000 yesterday. She reports her dyspnea is improved again today and reports she is coughing up some colored sputum. The AIT sputum culture was negative for bacteria. She is receiving IV Levaquin and Rocephin for the infiltrate we saw on chest x-ray. She is getting diuresed with IV Lasix 40 mg twice daily. She was on Entresto and spironolactone I will stop those this morning as her potassium is creeping up to 5.1 from 4.7 in anticipation of her becoming hyperkalemic. She does have chronic kidney disease stage IIIb. I ordered an echocardiogram and we are waiting on the results from that. We will start her molnupiravir today because of her creatinine clearance is borderline for the Paxlovid and we will continue diuresing her. Patient will need an anemia profile also to investigate her chronic anemia. It may be secondary to chronic kidney disease. If it is she would benefit from an injection of Procrit. Past Medical Family Social History Allergies: Allergies neisha Allergy (Unknown, Verified 02/21/23 04:56) neisha flavor Allergy (Unknown, Verified 02/21/23 04:56) peach Allergy (Unknown, Verified 02/21/23 04:56) plum Allergy (Unknown, Verified 02/21/23 04:56) Review of Systems ROS: No change since H&P Vital Signs and I&O's Vital Signs: Vital Signs Temperature 97.9 F Pulse Rate [Brachial] 57 Respiratory Rate 20 Blood Pressure [Left Arm] 115/54 O2 Sat by Pulse Oximetry 100 Intake and Output: Intake & Output 03/18/23 03/19/23 03/20/23 03/21/23 11:59 11:59 11:59 11:59 Intake Total 500 / 500 1480 / 1480 1436 / 1436 Output Total 700 / 700 Balance -200 / -200 1480 / 1480 1436 / 1436 Physical Exam Oriented: Normal, Time, Person and Place Eyes: Normal Ear: Normal Nose: Normal Throat: Normal Respiratory: Generalized and Rhonchi; negative Rales Cardiovascular: Normal Auscultation: Bowel Sounds: Normal Tenderness: Normal Skin: Normal Musculoskeletal: Normal Psychiatric: Normal Mood Description: Calm Affect: Normal Speech Pattern: Clear and Appropriate Laboratory and Diagnostics 03/20/23 05:14 03/20/23 05:14 Labs: 03/19/23 12:43 Sputum - Expectorated Sputum Sputum Culture - Preliminary 03/19/23 12:43 Sputum - Expectorated Sputum - Final 03/18/23 15:11 Urine,Clean Catch Urine Culture - Final Laboratory WBC 4.4 X10^3/uL (3.6-10.0) 03/20/23 05:14 RBC 2.57 X10^6/uL (3.5-5.4) L 03/20/23 05:14 Hgb 7.7 g/dL (12.0-16.0) L 03/20/23 05:14 Hct 23.9 % (36.0-47.0) L 03/20/23 05:14 MCV 93.1 fL (80.0-100.0) 03/20/23 05:14 MCH 30.0 pg (27.0-34.0) 03/20/23 05:14 MCHC 32.2 g/dL (33.0-35.0) L 03/20/23 05:14 RDW 17.0 % (11.6-16.5) H 03/20/23 05:14 Plt Count 260 X10^3/uL (150.0-450.0) 03/20/23 05:14 MPV 8.5 fL (7.4-11.0) 03/20/23 05:14 Neut % (Auto) 75.2 % (42.0-75.0) H 03/20/23 05:14 Lymph % (Auto) 15.1 % (21.0-51.0) L 03/20/23 05:14 [place] % (Auto) 9.0 % (0.0-13.0) 03/20/23 05:14 Eos % (Auto) 0.1 % (0.9-2.9) L 03/20/23 05:14 Baso % (Auto) 0.6 % (0.2-1.0) 03/20/23 05:14 Neut # (Auto) 3.3 x10^3/uL (2.2-4.8) 03/20/23 05:14 Lymph # (Auto) 0.7 X10^3/uL (1.3-2.9) L 03/20/23 05:14 [place] # (Auto) 0.4 x10^3/uL (0.3-0.8) 03/20/23 05:14 Eos # (Auto) 0.0 x10^3/uL (0.0-0.2) 03/20/23 05:14 Baso # (Auto) 0.0 X10^3/uL (0.0-0.1) 03/20/23 05:14 Absolute Nucleated RBC 0.2 /100WBC 03/20/23 05:14 Sodium 135 mmol/L (136-145) L 03/20/23 05:14 Corrected Sodium 135 mmol/L (136-145) L 03/20/23 05:14 Potassium 5.1 mmol/L (3.5-5.1) 03/20/23 05:14 Chloride 101 mmol/L (98-107) 03/20/23 05:14 Carbon Dioxide 26.6 mmol/L (21-32) 03/20/23 05:14 BUN 51 mg/dL (7-18) H 03/20/23 05:14 Creatinine 1.78 mg/dL (0.55-1.02) H 03/20/23 05:14 Est GFR (MDRD) Af Amer 37 (>60) L 03/20/23 05:14 Est GFR (MDRD) Non-Af 30 (>60) L 03/20/23 05:14 Glucose 118 mg/dL (65-99) H 03/20/23 05:14 POC Glucose (mg/dL) 66 mg/dL (65-99) 03/20/23 20:17 Lactic Acid 0.7 mmol/L (0.4-2.0) 03/19/23 08:51 Calcium 8.2 mg/dL (8.5-10.1) L 03/20/23 05:14 Corrected Calcium 9.6 mg/dL (8.5-10.1) 03/20/23 05:14 Magnesium 1.8 mg/dL (2.0-2.9) L 03/19/23 05:30 Total Bilirubin 0.30 mg/dL (0.2-1.0) 03/20/23 05:14 AST 10 Units/L (15-37) L 03/20/23 05:14 ALT 11 Units/L (12-78) L 03/20/23 05:14 Alkaline Phosphatase 159 Units/L (46-116) H 03/20/23 05:14 Troponin I High Sens 16.0 ng/L (4.0-60.0) 03/18/23 13:08 B-Natriuretic Peptide 2630 pg/mL (0-79) H 03/20/23 05:24 Total Protein 6.6 g/dL (6.4-8.2) 03/20/23 05:14 Albumin 2.2 g/dL (3.4-5.0) L 03/20/23 05:14 Globulin 4.4 g/dL (2.5-4.5) 03/20/23 05:14 Albumin/Globulin Ratio 0.5 Ratio (1.1-2.1) L 03/20/23 05:14 Lipase 110 Units/L (16-77) H 03/18/23 13:08 Specimen Type Clean catch urine 03/18/23 17:50 Urine Color Straw (YELLOW) 03/18/23 17:50 Urine Appearance Hazy (CLEAR) 03/18/23 17:50 Urine pH 6.0 (5.0 - 8.0) 03/18/23 17:50 Ur Specific [place] 1.015 (1.000-1.030) 03/18/23 17:50 Urine Protein 2+ (NEGATIVE) 03/18/23 17:50 Urine Glucose (UA) 2+ (NEGATIVE) 03/18/23 17:50 Urine Ketones Negative (NEGATIVE) 03/18/23 17:50 Urine Blood 2+ (NEGATIVE) 03/18/23 17:50 Urine Nitrite Negative (NEGATIVE) 03/18/23 17:50 Urine Bilirubin Negative (NEGATIVE) 03/18/23 17:50 Urine Urobilinogen Normal (NORMAL) 03/18/23 17:50 Ur Leukocyte Esterase 3+ (NEGATIVE) 03/18/23 17:50 Urine RBC 5-10 /HPF (0-3) A 03/18/23 17:50 Urine WBC Tntc /HPF (0-5) A 03/18/23 17:50 Ur Squamous Epith Cells Rare /HPF (NEGATIVE) 03/18/23 17:50 Urine Bacteria Trace /HPF (NEGATIVE) 03/18/23 17:50 Urine Yeast Rare /HPF (NEGATIVE) 03/18/23 17:50 Ur Culture Indicated? No/not indicated 03/18/23 17:50 Resp Viral Panel (PCR) See scanned report 03/19/23 09:19 Plan (1) Acute exacerbation of CHF (congestive heart failure): Status: Acute Plan: Lasix 40 mg IV twice daily. Start Entresto as well twice daily. Since the patient's BNP is going up I will add spironolactone 25 mg 1 p.o. deepa ly. Recheck chest x-ray in a.m. as well as BNP. (2) Acute UTI: Status: Acute Plan: IV Rocephin. Follow-up urine culture and sensitivity when available. (3) Anemia: Status: Acute Plan: Follow daily CBCs. Check anemia profile today. (4) Dyspnea: Status: Acute Plan: IV diuresis. Supplemental O2 via nasal cannula at 2 L. (5) Hypoxia: Status: Acute Plan: Monitor for improvement with IV diuresis. Continuous O2 monitoring. (6) Essential hypertension: Status: Acute Plan: Monitor daily blood pressure. Adjust blood pressure treatment if needed. (7) Insulin dependent type 2 diabetes mellitus: Status: None Plan: We will cover the patient's diabetes with a regular insulin sliding scale per protocol. (8) Pulmonary infiltrate on chest x-ray: Status: Acute Plan: Continue IV Rocephin and I will add IV Levaquin which will be renally dosed because of her chronic kidney disease. I will check sputum cultur es with AIT labs and blood cultures x2. We will also check lactic acid. (9) COVID-19: Status: Acute Plan: Dark molnupiravir instead of Paxlovid because the patient is borderline low creatinine clearance for the Paxlovid at this time.
[2023-03-20] MEDS: NEURONTIN CAP 300 MG PO SCH (20:37)
[2023-03-20] MEDS: LIPITOR TAB 40 MG PO SCH (20:38)
[2023-03-20] MEDS: SNACK - Diabetic Appropriate PO SCH (20:53)
[2023-03-20] MEDS: DESYREL PO SCH (20:58)
[2023-03-20 21:47] LABS: RETICULOCYTE % 2.74 % (0.8-2.2)
[2023-03-21] MEDS: NS 250 ML IV 250 ML IV SCH ×2 (02:58→15:46)
[2023-03-21 05:24] LABS: BASOPHILS # (AUTO) 0.1 X10^3/uL (0.0-0.1); EOSINOPHILS % (AUTO) 0.7 % (0.9-2.9); HEMATOCRIT 21.8 % (36.0-47.0); HEMOGLOBIN 7.1 g/dL (12.0-16.0); LYMPHOCYTES # (AUTO) 1.3 X10^3/uL (1.3-2.9); LYMPHOCYTES % (AUTO) 23.7 % (21.0-51.0); MEAN CORPUSCULAR HGB CONC 32.4 g/dL (33.0-35.0); MEAN CORPUSCULAR VOLUME 92.6 fL (80.0-100.0); MEAN PLATELET VOLUME 8.4 fL (7.4-11.0); MONOCYTES # (AUTO) 0.7 x10^3/uL (0.3-0.8); MONOCYTES % (AUTO) 11.6 % (0.0-13.0); NEUTROPHILS # (AUTO) 3.6 x10^3/uL (2.2-4.8); PLATELET COUNT 262 X10^3/uL (150.0-450.0); RED BLOOD COUNT 2.36 X10^6/uL (3.5-5.4); RED CELL DISTRIBUTION WIDTH 16.8 % (11.6-16.5); WHITE BLOOD COUNT 5.6 X10^3/uL (3.6-10.0)
[2023-03-21 05:34] LABS: ALANINE AMINOTRANSFERASE 9 Units/L (12-78); ALKALINE PHOSPHATASE 130 Units/L (46-116); ASPARTATE AMINO TRANSFERASE 9 Units/L (15-37); BLOOD UREA NITROGEN 54 mg/dL (7-18); CALCIUM 7.9 mg/dL (8.5-10.1); CARBON DIOXIDE 28.2 mmol/L (21-32); CHLORIDE 102 mmol/L (98-107); COR CA(FOR HYPOALB) 9.5 mg/dL (8.5-10.1); CREATININE 1.99 mg/dL (0.55-1.02); GLUCOSE 73 mg/dL (65-99); SODIUM 137 mmol/L (136-145); eGFR NON BLACK RACES 27 (>60)
[2023-03-21] MEDS ORDERED: D50W ABBOJECT SYR ONE (06:30)
[2023-03-21] MEDS ORDERED: D50W ABBOJECT SYR IV ONE (06:32)
[2023-03-21] MEDS: LASIX IVP SCH (09:03)
[2023-03-21] MEDS: MICRO K EXTEN CAP 10 MEQ PO SCH (09:03)
[2023-03-21] MEDS: DIOVAN TAB 160 MG PO SCH ×2 (09:03→20:13)
[2023-03-21] MEDS: BUSPAR PO SCH ×2 (09:04→20:22)
[2023-03-21] MEDS: COREG TAB 25 MG PO SCH ×2 (09:04→20:14)
[2023-03-21] MEDS: MAG-OX TAB PO SCH ×2 (09:04→20:13)
[2023-03-21] MEDS: PROTONIX TAB 40 MG PO SCH (09:05)
[2023-03-21] MEDS: ASPIRIN EC 81 MG PO SCH (09:05)
[2023-03-21] MEDS: CHLORTHALIDONE PO SCH (09:05)
[2023-03-21] MEDS: ROCEPHIN VIAL 1 GRAM 1 G in NS 100 ML IV 100 ML IV SCH (09:06)
[2023-03-21] MEDS: LINZESS PO SCH (09:06)
[2023-03-21] MEDS: PATIENT'S HOME MEDICATION PO SCH ×2 (09:19→20:23)
[2023-03-21 09:33] LABS: ABG BASE EXCESS 1.6 mmol/L (-2.0-2.0); ABG HCO3 27.2 mmol/L (22-26)
[2023-03-21 09:34] LABS: ABG ALLEN TEST POS
[2023-03-21] MEDS: LEVAQUIN PREMIX IV 250 MG 250 MG/50 ML BAG IV SCH (10:29)
[2023-03-21] MEDS: SANTYL EXT SCH (15:15)
[2023-03-21] MEDS: PROVENTIL NEB TX 0.083% 2.5MG/ 3ML NEB PRN ×2 (15:52→20:50)
[2023-03-21] MEDS: NEURONTIN CAP 300 MG PO SCH (20:13)
[2023-03-21] MEDS: LIPITOR TAB 40 MG PO SCH (20:14)
[2023-03-21] MEDS: SNACK - Diabetic Appropriate PO SCH (20:21)
[2023-03-21] MEDS: DESYREL PO SCH (20:23)
--- NOTE | 2023-03-22 01:59 | RAD ---
PROCEDURE: Chest X-ray 1 View .HISTORY: COVID-19.TECHNIQUE: AP view .COMPARISON: 03/20/2023.TECHNICAL QUALITY: Satisfactory .FINDINGS:Normal size heart .Mediastinum and hilar regions show no masses or lymphadenopathy .Normal central vascularity .No pulmonary consolidation, masses, pleural fluid, or pneumothorax .No acute bony abnormality .IMPRESSION:No active cardiopulmonary disease .Electronically signed by: Joshua Garcia (Mar 22, 2023 01:57:53)
[2023-03-22] MEDS: NS 250 ML IV 250 ML IV SCH ×2 (05:31→16:56)
[2023-03-22] MEDS: ROXICODONE TAB 15 MG PO PRN ×2 (06:51→16:54)
[2023-03-22] MEDS: PROVENTIL NEB TX 0.083% 2.5MG/ 3ML NEB PRN ×2 (07:00→20:45)
[2023-03-22 09:30] LABS: BASOPHILS # (AUTO) 0.1 X10^3/uL (0.0-0.1); BASOPHILS % (AUTO) 0.9 % (0.2-1.0); EOSINOPHILS # (AUTO) 0.2 x10^3/uL (0.0-0.2); EOSINOPHILS % (AUTO) 3.3 % (0.9-2.9); HEMOGLOBIN 7.4 g/dL (12.0-16.0); LYMPHOCYTES # (AUTO) 1.2 X10^3/uL (1.3-2.9); LYMPHOCYTES % (AUTO) 20.1 % (21.0-51.0); MEAN CORPUSCULAR HEMOGLOBIN 29.7 pg (27.0-34.0); MEAN CORPUSCULAR VOLUME 92.7 fL (80.0-100.0); MEAN PLATELET VOLUME 7.9 fL (7.4-11.0); MONOCYTES # (AUTO) 0.6 x10^3/uL (0.3-0.8); MONOCYTES % (AUTO) 10.5 % (0.0-13.0); NEUTROPHILS # (AUTO) 3.9 x10^3/uL (2.2-4.8); NEUTROPHILS % (AUTO) 65.2 % (42.0-75.0); PLATELET COUNT 263 X10^3/uL (150.0-450.0); RED BLOOD COUNT 2.48 X10^6/uL (3.5-5.4); RED CELL DISTRIBUTION WIDTH 16.3 % (11.6-16.5); WHITE BLOOD COUNT 5.9 X10^3/uL (3.6-10.0)
[2023-03-22 09:44] LABS: ALBUMIN 2.1 g/dL (3.4-5.0); CALCIUM 7.9 mg/dL (8.5-10.1); CARBON DIOXIDE 27.7 mmol/L (21-32); COR CA(FOR HYPOALB) 9.4 mg/dL (8.5-10.1); CREATININE 1.84 mg/dL (0.55-1.02); POTASSIUM 5.5 mmol/L (3.5-5.1); TOTAL PROTEIN 6.4 g/dL (6.4-8.2)
[2023-03-22] MEDS: ROCEPHIN VIAL 1 GRAM 1 G in NS 100 ML IV 100 ML IV SCH (09:47)
[2023-03-22] MEDS: MICRO K EXTEN CAP 10 MEQ PO SCH (09:48)
[2023-03-22] MEDS: BUSPAR PO SCH ×2 (09:48→20:27)
[2023-03-22] MEDS: PROTONIX TAB 40 MG PO SCH (09:48)
[2023-03-22] MEDS: ASPIRIN EC 81 MG PO SCH (09:48)
[2023-03-22] MEDS: LINZESS PO SCH (09:48)
[2023-03-22] MEDS: MAG-OX TAB PO SCH ×2 (09:48→20:28)
[2023-03-22] MEDS: PATIENT'S HOME MEDICATION PO SCH ×2 (09:49→20:46)
[2023-03-22] MEDS: LASIX IVP SCH (09:49)
[2023-03-22] MEDS: COREG TAB 25 MG PO SCH ×3 (10:15→20:28)
[2023-03-22] MEDS: DIOVAN TAB 160 MG PO SCH ×3 (10:16→20:28)
[2023-03-22 11:13] LABS: ABG BASE EXCESS 2.6 mmol/L (-2.0-2.0); ABG HCO3 28.4 mmol/L (22-26)
[2023-03-22] MEDS: ZOFRAN INJ 4 MG VIAL IVP PRN ×2 (11:42→17:53)
[2023-03-22] MEDS: LEVAQUIN PREMIX IV 250 MG 250 MG/50 ML BAG IV SCH (11:43)
[2023-03-22] MEDS: DIFLUCAN 100 MG IV (MIX by PHARMACY)* 100 MG/50 ML BAG IV SCH (13:35)
[2023-03-22] MEDS: LIPITOR TAB 40 MG PO SCH (20:28)
[2023-03-22] MEDS: NEURONTIN CAP 300 MG PO SCH (20:28)
[2023-03-22] MEDS: SNACK - Diabetic Appropriate PO SCH (20:45)
[2023-03-22] MEDS: DESYREL PO SCH (20:46)
[2023-03-23 06:13] LABS: BASOPHILS % (AUTO) 0.7 % (0.2-1.0); EOSINOPHILS # (AUTO) 0.2 x10^3/uL (0.0-0.2); EOSINOPHILS % (AUTO) 3.1 % (0.9-2.9); HEMATOCRIT 24.2 % (36.0-47.0); HEMOGLOBIN 7.8 g/dL (12.0-16.0); LYMPHOCYTES # (AUTO) 1.7 X10^3/uL (1.3-2.9); LYMPHOCYTES % (AUTO) 31.3 % (21.0-51.0); MEAN CORPUSCULAR HEMOGLOBIN 29.6 pg (27.0-34.0); MEAN CORPUSCULAR HGB CONC 32.2 g/dL (33.0-35.0); MEAN PLATELET VOLUME 8.4 fL (7.4-11.0); MONOCYTES # (AUTO) 0.5 x10^3/uL (0.3-0.8); MONOCYTES % (AUTO) 8.7 % (0.0-13.0); NEUTROPHILS % (AUTO) 56.2 % (42.0-75.0); PLATELET COUNT 260 X10^3/uL (150.0-450.0); RED BLOOD COUNT 2.63 X10^6/uL (3.5-5.4); RED CELL DISTRIBUTION WIDTH 16.5 % (11.6-16.5); WHITE BLOOD COUNT 5.4 X10^3/uL (3.6-10.0)
[2023-03-23 06:19] LABS: ALBUMIN 2.3 g/dL (3.4-5.0); CALCIUM 8.5 mg/dL (8.5-10.1); CARBON DIOXIDE 31.8 mmol/L (21-32); COR CA(FOR HYPOALB) 9.9 mg/dL (8.5-10.1); CREATININE 1.67 mg/dL (0.55-1.02); POTASSIUM 5.6 mmol/L (3.5-5.1); TOTAL PROTEIN 6.8 g/dL (6.4-8.2)
--- NOTE | 2023-03-23 07:05 | RAD ---
EXAM:Two-view chestHISTORY:Congestive heart failure, COVID, shortness of breathCOMPARISON:03/21/2023FINDINGS:Hear t is mildly enlarged. No congestive heart failure is noted. No acute alveolar infiltrate are identified. No pleural effusions are identified. There is a linear density in the right mid chest abutting or overlying the right hilum which has the appearance of a pneumomediastinum however it may well be artifactual and due to some of the extrinsic to the patient. Bony thorax is unremarkable.IMPRESSION:Linear density adjacent to the heart border may be artifactual and due to something extrinsic to the patient however pneumomediastinum not entirely excluded. Repeat upright chest film recommendedMild cardiomegaly without congestive heart failureNo infiltratesTHIS IS AN ELECTRONICALLY VERIFIED FINAL [id number]/23/2023 7:02 AM - Electronically signed by Blas Nguyen MD
[2023-03-23] MEDS: LASIX IVP SCH (08:18)
[2023-03-23] MEDS: BUSPAR PO SCH ×2 (08:20→21:31)
[2023-03-23] MEDS: ASPIRIN EC 81 MG PO SCH (08:21)
[2023-03-23] MEDS: PROTONIX TAB 40 MG PO SCH (08:22)
[2023-03-23] MEDS: COREG TAB 25 MG PO SCH ×2 (08:22→21:31)
[2023-03-23] MEDS: ROCEPHIN VIAL 1 GRAM 1 G in NS 100 ML IV 100 ML IV SCH (08:23)
[2023-03-23] MEDS: MAG-OX TAB PO SCH ×2 (08:23→21:31)
[2023-03-23] MEDS: LINZESS PO SCH (08:33)
[2023-03-23] MEDS: MICRO K EXTEN CAP 10 MEQ PO SCH (08:34)
[2023-03-23] MEDS ORDERED: KAYEXALATE SUSP PO NR (09:00)
[2023-03-23] MEDS ORDERED: DIOVAN TAB 160 MG PO SCH (09:00)
[2023-03-23] MEDS: PATIENT'S HOME MEDICATION PO SCH ×2 (09:47→21:48)
[2023-03-23] MEDS: DIFLUCAN 100 MG IV (MIX by PHARMACY)* 100 MG/50 ML BAG IV SCH (10:16)
[2023-03-23] MEDS: LEVAQUIN PREMIX IV 250 MG 250 MG/50 ML BAG IV SCH (11:37)
[2023-03-23] MEDS: APRESOLINE TAB 25 MG PO SCH ×2 (15:21→21:31)
[2023-03-23] MEDS: LEVEMIR SC SCH (16:46)
--- NOTE | 2023-03-23 18:29 | RAD ---
EXAM:CHEST, 1 VIEWHISTORY:SOB; HTN, DIABETES, CHF UnavailableCOMPARISON:March 22, 2020FINDINGS:The trachea is midline. The cardiac silhouette is enlarged but stable.. The lungs demonstrate some mildly increased pulmonary vascular congestion compared to prior suggesting early changes of CHF. Without focal infiltrate or effusion. The bony thorax is unremarkable.IMPRESSION:Cardiomegaly with early findings of CHF.THIS IS AN ELECTRONICALLY VERIFIED FINAL [id number]/23/2023 6:26 PM - Electronically signed by Dakota Renteria MD
[2023-03-23] MEDS ORDERED: SNACK - Diabetic Appropriate PO SCH (20:00)
[2023-03-23] MEDS: PROVENTIL NEB TX 0.083% 2.5MG/ 3ML NEB PRN (20:06)
--- NOTE | 2023-03-23 20:38 | PCM.PROG ---
Progress Note Progress Note for Day of Date of Exam: 03/23/23 Subjective Subjective: The patient is admitted here for CHF exacerbation, COVID-19 diagnosed today, and pulmonary infiltrate by chest x-ray. The patient has chronic kidney disease stage IIIa as well. This morning she reports that she feels much better and is ready to go home. However, she does have hyperkalemia with a potassium of 5.6. She was given Kayexalate and potassium was rechecked later but she actually went up to 5.7 instead of going down. We gave her some additional Kayexalate and a repeat potassium level later this evening showed that she had gone down to 5.4. We have decided to keep her overnight again and work on getting her potassium down. I did completely discontinue the valsartan that she was getting. We will repeat a CBC, CMP, BNP and a portable chest x-ray again tomorrow morning. Today's chest x-ray showed early findings of CHF. She currently is getting her Lasix 40 mg IV daily. I will reevaluate her in the morning and see how she is doing. Past Medical Family Social History Allergies: Allergies neisha Allergy (Unknown, Verified 02/21/23 04:56) neisha flavor Allergy (Unknown, Verified 02/21/23 04:56) peach Allergy (Unknown, Verified 02/21/23 04:56) plum Allergy (Unknown, Verified 02/21/23 04:56) Review of Systems ROS: No change since H&P Vital Signs and I&O's Vital Signs: Vital Signs Temperature 98.6 F Pulse Rate [Brachial] 55 Pulse Rate 56 Respiratory Rate 20 Blood Pressure [Right Arm] 172/76 O2 Sat by Pulse Oximetry 100 O2 Sat by Pulse Oximetry 93 Intake and Output: Intake & Output 03/21/23 03/22/23 03/23/23 03/24/23 11:59 11:59 11:59 11:59 Intake Total 2815 / 2815 2463 / 2463 1748 / 1748 867 / 867 Balance 2815 / 2815 2462 / 246 1748 / 1748 867 / 867 Physical Exam Oriented: Normal, Time, Person and Place Eyes: Normal Ear: Normal Nose: Normal Throat: Normal Respiratory: Normal; negative Rales Cardiovascular: Normal Auscultation: Bowel Sounds: Normal Tenderness: Normal Skin: Normal Musculoskeletal: Normal Psychiatric: Normal Mood Description: Calm Affect: Normal Speech Pattern: Clear and Appropriate Laboratory and Diagnostics 03/23/23 05:19 03/23/23 18:10 Labs: 03/19/23 12:43 Sputum - Expectorated Sputum Sputum Culture - Preliminary 03/19/23 12:43 Sputum - Expectorated Sputum - Final 03/19/23 08:57 Blood Blood Culture - Preliminary 03/19/23 08:51 Blood Blood Culture - Preliminary 03/18/23 15:11 Urine,Clean Catch Urine Culture - Final Laboratory WBC 5.4 X10^3/uL (3.6-10.0) 03/23/23 05:19 RBC 2.63 X10^6/uL (3.5-5.4) L 03/23/23 05:19 Hgb 7.8 g/dL (12.0-16.0) L 03/23/23 05:19 Hct 24.2 % (36.0-47.0) L 03/23/23 05:19 MCV 92.0 fL (80.0-100.0) 03/23/23 05:19 MCH 29.6 pg (27.0-34.0) 03/23/23 05:19 MCHC 32.2 g/dL (33.0-35.0) L 03/23/23 05:19 RDW 16.5 % (11.6-16.5) 03/23/23 05:19 Plt Count 260 X10^3/uL (150.0-450.0) 03/23/23 05:19 MPV 8.4 fL (7.4-11.0) 03/23/23 05:19 Neut % (Auto) 56.2 % (42.0-75.0) 03/23/23 05:19 Lymph % (Auto) 31.3 % (21.0-51.0) 03/23/23 05:19 [place] % (Auto) 8.7 % (0.0-13.0) 03/23/23 05:19 Eos % (Auto) 3.1 % (0.9-2.9) H 03/23/23 05:19 Baso % (Auto) 0.7 % (0.2-1.0) 03/23/23 05:19 Neut # (Auto) 3.0 x10^3/uL (2.2-4.8) 03/23/23 05:19 Lymph # (Auto) 1.7 X10^3/uL (1.3-2.9) 03/23/23 05:19 [place] # (Auto) 0.5 x10^3/uL (0.3-0.8) 03/23/23 05:19 Eos # (Auto) 0.2 x10^3/uL (0.0-0.2) 03/23/23 05:19 Baso # (Auto) 0.0 X10^3/uL (0.0-0.1) 03/23/23 05:19 Absolute Nucleated RBC 0.3 /100WBC 03/23/23 05:19 Absolute Retic 0.0668 10^6/uL 03/20/23 21:30 Percent Retic 2.74 % (0.8-2.2) H 03/20/23 21:30 Sample Site Rbra 03/22/23 11:08 ABG pH 7.380 (7.35-7.45) 03/22/23 11:08 ABG pCO2 48.0 mmHg (35.0-45.0) H 03/22/23 11:08 ABG pO2 68.0 mmHg (80.0-100.0) L 03/22/23 11:08 ABG HCO3 28.4 mmol/L (22-26) H 03/22/23 11:08 ABG O2 Saturation 93.0 % (90-100) 03/22/23 11:08 ABG Base Excess 2.6 mmol/L (-2.0-2.0) H 03/22/23 11:08 Seth Test N/a 03/22/23 11:08 A-a Gradient 22.0 mmHg 03/22/23 11:08 FiO2 21.0 03/22/23 11:08 Blood Gas Comments Pt maria g well elj cdn 03/22/23 11:08 Sodium 136 mmol/L (136-145) 03/23/23 05:19 Corrected Sodium 136 mmol/L (136-145) 03/23/23 05:19 Potassium 5.4 mmol/L (3.5-5.1) H 03/23/23 18:10 Chloride 102 mmol/L (98-107) 03/23/23 05:19 Carbon Dioxide 31.8 mmol/L (21-32) 03/23/23 05:19 BUN 55 mg/dL (7-18) H 03/23/23 05:19 Creatinine 1.67 mg/dL (0.55-1.02) H 03/23/23 05:19 Est GFR (MDRD) Af Amer 39 (>60) L 03/23/23 05:19 Est GFR (MDRD) Non-Af 33 (>60) L 03/23/23 05:19 Glucose 118 mg/dL (65-99) H 03/23/23 05:19 POC Glucose (mg/dL) 236 mg/dL (65-99) H 03/23/23 16:02 Lactic Acid 0.7 mmol/L (0.4-2.0) 03/19/23 08:51 Calcium 8.5 mg/dL (8.5-10.1) 03/23/23 05:19 Corrected Calcium 9.9 mg/dL (8.5-10.1) 03/23/23 05:19 Magnesium 1.8 mg/dL (2.0-2.9) L 03/19/23 05:30 Iron 15 ug/dL (50-175) L 03/20/23 21:30 Ferritin 181 ng/mL (8-252) 03/20/23 21:30 Total Bilirubin 0.20 mg/dL (0.2-1.0) 03/23/23 05:19 AST 9 Units/L (15-37) L 03/23/23 05:19 ALT 8 Units/L (12-78) L 03/23/23 05:19 Alkaline Phosphatase 145 Units/L (46-116) H 03/23/23 05:19 Troponin I High Sens 16.0 ng/L (4.0-60.0) 03/18/23 13:08 B-Natriuretic Peptide 3200 pg/mL (0-79) H 03/23/23 05:19 Total Protein 6.8 g/dL (6.4-8.2) 03/23/23 05:19 Albumin 2.3 g/dL (3.4-5.0) L 03/23/23 05:19 Globulin 4.5 g/dL (2.5-4.5) 03/23/23 05:19 Albumin/Globulin Ratio 0.5 Ratio (1.1-2.1) L 03/23/23 05:19 Lipase 110 Units/L (16-77) H 03/18/23 13:08 Vitamin B12 509 pg/mL (193-986) 03/20/23 21:30 Folate 7.6 ng/mL (>8.6) L 03/20/23 21:30 Specimen Type Clean catch urine 03/18/23 17:50 Urine Color Straw (YELLOW) 03/18/23 17:50 Urine Appearance Hazy (CLEAR) 03/18/23 17:50 Urine pH 6.0 (5.0 - 8.0) 03/18/23 17:50 Ur Specific [place] 1.015 (1.000-1.030) 03/18/23 17:50 Urine Protein 2+ (NEGATIVE) 03/18/23 17:50 Urine Glucose (UA) 2+ (NEGATIVE) 03/18/23 17:50 Urine Ketones Negative (NEGATIVE) 03/18/23 17:50 Urine Blood 2+ (NEGATIVE) 03/18/23 17:50 Urine Nitrite Negative (NEGATIVE) 03/18/23 17:50 Urine Bilirubin Negative (NEGATIVE) 03/18/23 17:50 Urine Urobilinogen Normal (NORMAL) 03/18/23 17:50 Ur Leukocyte Esterase 3+ (NEGATIVE) 03/18/23 17:50 Urine RBC 5-10 /HPF (0-3) A 03/18/23 17:50 Urine WBC Tntc /HPF (0-5) A 03/18/23 17:50 Ur Squamous Epith Cells Rare /HPF (NEGATIVE) 03/18/23 17:50 Urine Bacteria Trace /HPF (NEGATIVE) 03/18/23 17:50 Urine Yeast Rare /HPF (NEGATIVE) 03/18/23 17:50 Ur Culture Indicated? No/not indicated 03/18/23 17:50 Stl Occult Blood (IFOB) Negative (NEGATIVE) 03/22/23 12:21 Resp Viral Panel (PCR) See scanned report 03/19/23 09:19 Plan (1) Acute exacerbation of CHF (congestive heart failure): Status: Acute Plan: Lasix 40 mg IV daily. (2) Acute UTI: Status: Acute Plan: IV Rocephin. Follow-up urine culture and sensitivity when avail able. (3) Anemia: Status: Acute Plan: Follow daily CBCs. Check anemia profile today. (4) Dyspnea: Status: Resolved Plan: IV diuresis. Supplemental O2 via nasal cannula at 2 L. (5) Hypoxia: Status: Acute Plan: Monitor for improvement with IV diuresis. Continuous O2 monitoring. (6) Essential hypertension: Status: Acute Plan: The patient's blood pressure has been elevated so I will add hydralazine 25 mg p.o. every 6 hours. Reevaluate blood pressure tomorrow morning. (7) Insulin dependent type 2 diabetes mellitus: Status: None Plan: We will cover the patient's diabetes with a regular insulin sliding scale per protocol. (8) Pulmonary infiltrate on chest x-ray: Status: Acute Plan: Continue IV Rocephin and I will add IV Levaquin which will be renally dosed because of her chronic kidney disease. I will check sputum cultures with AIT labs and blood cultures x2. We will also check lactic acid. (9) COVID-19: Status: Acute Plan: Dark molnupiravir instead of Paxlovid because the patient is borderl ine low creatinine clearance for the Paxlovid at this time.
[2023-03-23] MEDS ORDERED: KAYEXALATE SUSP PO ONE (20:46)
[2023-03-23] MEDS: NEURONTIN CAP 300 MG PO SCH (21:31)
[2023-03-23] MEDS: LIPITOR TAB 40 MG PO SCH (21:31)
[2023-03-23] MEDS: SNACK - Diabetic Appropriate PO SCH (21:33)
[2023-03-23] MEDS: ROXICODONE TAB 15 MG PO PRN (21:33)
[2023-03-23] MEDS: NS 250 ML IV 250 ML IV SCH (21:41)
[2023-03-23] MEDS: DESYREL PO SCH (21:42)
[2023-03-24] MEDS: APRESOLINE TAB 25 MG PO SCH ×4 (03:57→21:26)
[2023-03-24 06:09] LABS: BASOPHILS # (AUTO) 0.1 X10^3/uL (0.0-0.1); BASOPHILS % (AUTO) 0.9 % (0.2-1.0); EOSINOPHILS # (AUTO) 0.1 x10^3/uL (0.0-0.2); EOSINOPHILS % (AUTO) 1.8 % (0.9-2.9); HEMATOCRIT 24.4 % (36.0-47.0); HEMOGLOBIN 7.8 g/dL (12.0-16.0); LYMPHOCYTES # (AUTO) 1.7 X10^3/uL (1.3-2.9); LYMPHOCYTES % (AUTO) 23.8 % (21.0-51.0); MEAN CORPUSCULAR HEMOGLOBIN 29.2 pg (27.0-34.0); MEAN CORPUSCULAR HGB CONC 31.9 g/dL (33.0-35.0); MEAN CORPUSCULAR VOLUME 91.5 fL (80.0-100.0); MEAN PLATELET VOLUME 8.4 fL (7.4-11.0); MONOCYTES # (AUTO) 0.7 x10^3/uL (0.3-0.8); MONOCYTES % (AUTO) 9.5 % (0.0-13.0); NEUTROPHILS # (AUTO) 4.6 x10^3/uL (2.2-4.8); PLATELET COUNT 279 X10^3/uL (150.0-450.0); RED BLOOD COUNT 2.66 X10^6/uL (3.5-5.4); RED CELL DISTRIBUTION WIDTH 16.3 % (11.6-16.5); WHITE BLOOD COUNT 7.1 X10^3/uL (3.6-10.0)
[2023-03-24 06:23] LABS: ALBUMIN 2.3 g/dL (3.4-5.0); CARBON DIOXIDE 29.7 mmol/L (21-32); COR CA(FOR HYPOALB) 9.4 mg/dL (8.5-10.1); CREATININE 1.46 mg/dL (0.55-1.02); MAGNESIUM 2.4 mg/dL (2.0-2.9); TOTAL PROTEIN 6.8 g/dL (6.4-8.2)
[2023-03-24 06:24] LABS: POTASSIUM 5.1 mmol/L (3.5-5.1)
--- NOTE | 2023-03-24 07:25 | RAD ---
EXAM:Portable chestHISTORY:Congestive heart failureCOMPARISON:03/23/2023FINDINGS:Hea rt remains enlarged. No definite congestive heart failure on today's examination. No acute alveolar infiltrates or pleural effusions identified. There is minimal subsegmental atelectasis right costophrenic angle and left mid lung. Bony thorax is unremarkable.IMPRESSION:Cardiomegaly without congestive heart failure on today's examinationNo acute infiltratesTHIS IS AN ELECTRONICALLY VERIFIED FINAL [id number]/24/2023 7:22 AM - Electronically signed by Blas Nguyen MD
[2023-03-24] MEDS: COREG TAB 25 MG PO SCH ×2 (08:22→21:25)
[2023-03-24] MEDS: BUSPAR PO SCH ×2 (08:22→21:25)
[2023-03-24] MEDS: PROTONIX TAB 40 MG PO SCH (08:23)
[2023-03-24] MEDS: ASPIRIN EC 81 MG PO SCH (08:24)
[2023-03-24] MEDS: MAG-OX TAB PO SCH ×2 (08:24→21:26)
[2023-03-24] MEDS: PATIENT'S HOME MEDICATION PO SCH ×2 (08:26→21:48)
[2023-03-24] MEDS: LEVAQUIN PREMIX IV 250 MG 250 MG/50 ML BAG IV SCH (08:26)
[2023-03-24] MEDS: LASIX IVP SCH ×3 (08:30→17:35)
[2023-03-24] MEDS ORDERED: PROCRIT or EPOGEN VIAL 10,000 UNITS SC ONE (09:00)
[2023-03-24] MEDS: LINZESS PO SCH (09:16)
[2023-03-24] MEDS: NS 250 ML IV 250 ML IV SCH ×2 (10:25→19:26)
[2023-03-24] MEDS: LEVEMIR SC SCH (10:30)
[2023-03-24] MEDS: PROVENTIL NEB TX 0.083% 2.5MG/ 3ML NEB PRN ×3 (10:38→21:02)
[2023-03-24] MEDS ORDERED: PROCRIT or EPOGEN VIAL 20,000 UNITS SC ONE (11:06)
[2023-03-24] MEDS: ROCEPHIN VIAL 1 GRAM 1 G in NS 100 ML IV 100 ML IV SCH (11:16)
[2023-03-24] MEDS: MUCOMYST 20% 200 MG/ML NEB PRN ×2 (13:35→21:02)
[2023-03-24] MEDS: VIBRAMYCIN 100 MG in D5W 250 ML IV 250 ML IV SCH ×2 (15:26→21:26)
[2023-03-24] MEDS: ZOFRAN INJ 4 MG VIAL IVP PRN (16:20)
[2023-03-24] MEDS: DIFLUCAN 100 MG IV (MIX by PHARMACY)* 100 MG/50 ML BAG IV SCH ×2 (16:39→19:26)
[2023-03-24] MEDS ORDERED: DIFLUCAN 200 MG IV PREMIX* 200 MG/100 ML BAG IV ONE (16:51)
[2023-03-24] MEDS ORDERED: FLUARIX QUAD VACC (FOR AGE 6 MONTHS+) IM ONE (16:52)
[2023-03-24] MEDS ORDERED: PREVNAR 13 SYRINGE IM ONE (16:52)
[2023-03-24] MEDS ORDERED: NS 250 ML IV 250 ML IV ONE (19:28)
[2023-03-24] MEDS ORDERED: SNACK - Diabetic Appropriate PO SCH (20:00)
--- NOTE | 2023-03-24 20:02 | PCM.PROG ---
Progress Note Progress Note for Day of Date of Exam: 03/24/23 Subjective Subjective: The patient is admitted here for CHF exacerbation, COVID-19 diagnosed today, and pulmonary infiltrate by chest x-ray. The patient has chronic kidney disease stage IIIa as well. This morning she reports that she is coughing up yellow phlegm that is yellow/greenish in color. She feels more congested in her chest. Physical exam revealed that she had scattered rhonchi and scattered expiratory wheezing. I see also that her BNP is greater than 4000 today so we will restart her Lasix 40 mg IV twice daily from daily. Her blood pressure has been elevated so I will also add valsartan 80 mg daily for improved blood pressure control. I will also add doxycycline 100 mg IV twice daily for t he worsening dyspnea and cough that she has. We will recheck sputum culture today and repeat routine labs and chest x-ray in the morning. She does not have any significant lower extremity edema at this time and overall she seems to be her normal baseline. Past Medical Family Social History Allergies: Allergies neisha Allergy (Unknown, Verified 02/21/23 04:56) neisha flavor Allergy (Unknown, Verified 02/21/23 04:56) peach Allergy (Unknown, Verified 02/21/23 04:56) plum Allergy (Unknown, Verified 02/21/23 04:56) Review of Systems ROS: No change since H&P Vital Signs and I&O's Vital Signs: Vital Signs Temperature 98.1 F Temperature 98.1 F Pulse Rate [Brachial] 66 Pulse Rate [Brachial] 62 Respiratory Rate 20 Respiratory Rate 20 Blood Pressure [Right Arm] 169/72 Blood Pressure [Left Arm] 188/81 O2 Sat by Pulse Oximetry 98 O2 Sat by Pulse Oximetry 99 Intake and Output: Intake & Output 03/22/23 03/23/23 03/24/23 03/25/23 11:59 11:59 11:59 11:59 Intake Total 2463 / 2463 1748 / 1748 1167 / 1167 1260 / 1260 Balance 246 / 2463 1748 / 1748 1167 / 1167 1260 / 1260 Physical Exam Oriented: Normal, Time, Person and Place Eyes: Normal Ear: Normal Nose: Normal Throat: Normal Respiratory: Normal, Generalized, Wheezes and Rhonchi; negative Rales Cardiovascular: Normal Auscultation: Bowel Sounds: Normal Tenderness: Normal Skin: Normal Musculoskeletal: Normal Psychiatric: Normal Mood Description: Calm Affect: Normal Speech Pattern: Clear and Appropriate Laboratory and Diagnostics 03/24/23 05:27 03/24/23 05:27 Labs: 03/19/23 12:43 Sputum - Expectorated Sputum Sputum Culture - Preliminary 03/19/23 12:43 Sputum - Expectorated Sputum - Final 03/19/23 08:57 Blood Blood Culture - Preliminary 03/19/23 08:51 Blood Blood Culture - Preliminary 03/18/23 15:11 Urine,Clean Catch Urine Culture - Final Laboratory WBC 7.1 X10^3/uL (3.6-10.0) 03/24/23 05:27 RBC 2.66 X10^6/uL (3.5-5.4) L 03/24/23 05:27 Hgb 7.8 g/dL (12.0-16.0) L 03/24/23 05:27 Hct 24.4 % (36.0-47.0) L 03/24/23 05:27 MCV 91.5 fL (80.0-100.0) 03/24/23 05:27 MCH 29.2 pg (27.0-34.0) 03/24/23 05:27 MCHC 31.9 g/dL (33.0-35.0) L 03/24/23 05:27 RDW 16.3 % (11.6-16.5) 03/24/23 05:27 Plt Count 279 X10^3/uL (150.0-450.0) 03/24/23 05:27 MPV 8.4 fL (7.4-11.0) 03/24/23 05:27 Neut % (Auto) 64.0 % (42.0-75.0) 03/24/23 05:27 Lymph % (Auto) 23.8 % (21.0-51.0) 03/24/23 05:27 [place] % (Auto) 9.5 % (0.0-13.0) 03/24/23 05:27 Eos % (Auto) 1.8 % (0.9-2.9) 03/24/23 05:27 Baso % (Auto) 0.9 % (0.2-1.0) 03/24/23 05:27 Neut # (Auto) 4.6 x10^3/uL (2.2-4.8) 03/24/23 05:27 Lymph # (Auto) 1.7 X10^3/uL (1.3-2.9) 03/24/23 05:27 [place] # (Auto) 0.7 x10^3/uL (0.3-0.8) 03/24/23 05:27 Eos # (Auto) 0.1 x10^3/uL (0.0-0.2) 03/24/23 05:27 Baso # (Auto) 0.1 X10^3/uL (0.0-0.1) 03/24/23 05:27 Absolute Nucleated RBC 0.3 /100WBC 03/24/23 05:27 Absolute Retic 0.0668 10^6/uL 03/20/23 21:30 Percent Retic 2.74 % (0.8-2.2) H 03/20/23 21:30 Sample Site Rbra 03/22/23 11:08 ABG pH 7.380 (7.35-7.45) 03/22/23 11:08 ABG pCO2 48.0 mmHg (35.0-45.0) H 03/22/23 11:08 ABG pO2 68.0 mmHg (80.0-100.0) L 03/22/23 11:08 ABG HCO3 28.4 mmol/L (22-26) H 03/22/23 11:08 ABG O2 Saturation 93.0 % (90-100) 03/22/23 11:08 ABG Base Excess 2.6 mmol/L (-2.0-2.0) H 03/22/23 11:08 Seth Test N/a 03/22/23 11:08 A-a Gradient 22.0 mmHg 03/22/23 11:08 FiO2 21.0 03/22/23 11:08 Blood Gas Comments Pt maria g well elj cdn 03/22/23 11:08 Sodium 139 mmol/L (136-145) 03/24/23 05:27 Corrected Sodium 139 mmol/L (136-145) 03/24/23 05:27 Potassium 5.1 mmol/L (3.5-5.1) 03/24/23 05:27 Chloride 103 mmol/L (98-107) 03/24/23 05:27 Carbon Dioxide 29.7 mmol/L (21-32) 03/24/23 05:27 BUN 48 mg/dL (7-18) H 03/24/23 05:27 Creatinine 1.46 mg/dL (0.55-1.02) H 03/24/23 05:27 Est GFR (MDRD) Af Amer 46 (>60) L 03/24/23 05:27 Est GFR (MDRD) Non-Af 38 (>60) L 03/24/23 05:27 Glucose 115 mg/dL (65-99) H 03/24/23 05:27 POC Glucose (mg/dL) 201 mg/dL (65-99) H 03/24/23 17:08 Lactic Acid 0.7 mmol/L (0.4-2.0) 03/19/23 08:51 Calcium 8.0 mg/dL (8.5-10.1) L 03/24/23 05:27 Corrected Calcium 9.4 mg/dL (8.5-10.1) 03/24/23 05:27 Magnesium 2.4 mg/dL (2.0-2.9) 03/24/23 05:27 Iron 15 ug/dL (50-175) L 03/20/23 21:30 Ferritin 181 ng/mL (8-252) 03/20/23 21:30 Total Bilirubin 0.20 mg/dL (0.2-1.0) 03/24/23 05:27 AST 10 Units/L (15-37) L 03/24/23 05:27 ALT 7 Units/L (12-78) L 03/24/23 05:27 Alkaline Phosphatase 143 Units/L (46-116) H 03/24/23 05:27 Troponin I High Sens 16.0 ng/L (4.0-60.0) 03/18/23 13:08 B-Natriuretic Peptide 4300 pg/mL (0-79) H 03/24/23 05:27 Total Protein 6.8 g/dL (6.4-8.2) 03/24/23 05:27 Albumin 2.3 g/dL (3.4-5.0) L 03/24/23 05:27 Globulin 4.5 g/dL (2.5-4.5) 03/24/23 05:27 Albumin/Globulin Ratio 0.5 Ratio (1.1-2.1) L 03/24/23 05:27 Lipase 110 Units/L (16-77) H 03/18/23 13:08 Vitamin B12 509 pg/mL (193-986) 03/20/23 21:30 Folate 7.6 ng/mL (>8.6) L 03/20/23 21:30 Specimen Type Clean catch urine 03/18/23 17:50 Urine Color Straw (YELLOW) 03/18/23 17:50 Urine Appearance Hazy (CLEAR) 03/18/23 17:50 Urine pH 6.0 (5.0 - 8.0) 03/18/23 17:50 Ur Specific [place] 1.015 (1.000-1.030) 03/18/23 17:50 Urine Protein 2+ (NEGATIVE) 03/18/23 17:50 Urine Glucose (UA) 2+ (NEGATIVE) 03/18/23 17:50 Urine Ketones Negative (NEGATIVE) 03/18/23 17:50 Urine Blood 2+ (NEGATIVE) 03/18/23 17:50 Urine Nitrite Negative (NEGATIVE) 03/18/23 17:50 Urine Bilirubin Negative (NEGATIVE) 03/18/23 17:50 Urine Urobilinogen Normal (NORMAL) 03/18/23 17:50 Ur Leukocyte Esterase 3+ (NEGATIVE) 03/18/23 17:50 Urine RBC 5-10 /HPF (0-3) A 03/18/23 17:50 Urine WBC Tntc /HPF (0-5) A 03/18/23 17:50 Ur Squamous Epith Cells Rare /HPF (NEGATIVE) 03/18/23 17:50 Urine Bacteria Trace /HPF (NEGATIVE) 03/18/23 17:50 Urine Yeast Rare /HPF (NEGATIVE) 03/18/23 17:50 Ur Culture Indicated? No/not indicated 03/18/23 17:50 Stl Occult Blood (IFOB) Negative (NEGATIVE) 03/22/23 12:21 Resp Viral Panel (PCR) See scanned report 03/19/23 09:19 Radiology Reviewed: Yes Plan (1) Acute exacerbation of CHF (congestive heart failure): Status: Acute Plan: Lasix 40 mg IV twice daily. (2) Acute UTI: Status: Acute Narrative Support Text: Urine culture was negative. Plan: IV Rocephin. Follow-up urine culture and sensitivity when available. (3) Anemia: Status: Acute Plan: Follow daily CBCs. Procrit 20,000 units subcutaneous injection today. (4) Dyspnea: Status: Resolved Plan: IV diuresis. Supplemental O2 via nasal cannula at 2 L. (5) Hypoxia: Status: Acute Plan: Monitor for improvement with IV diuresis. Continuous O2 monitoring. (6) Essential hypertension: Status: Acute Plan: The patient's blood pressure has been elevated so I will add hyd ralazine 25 mg p.o. every 6 hours. I will add valsartan 80 mg p.o. daily. Recheck blood pressure in the a.m. (7) Insulin dependent type 2 diabetes mellitus: Status: None Plan: We will cover the patient's diabetes with a regular insulin sliding scale per protocol. (8) Pulmonary infiltrate on chest x-ray: Status: Acute Plan: Continue IV Rocephin and I will add IV Levaquin which will be renally dosed because of her chronic kidney disease. I will check sputum cultures with AIT labs and blood cultures x2. We will also check lactic acid. (9) COVID-19: Status: Acute Plan: Dark molnupiravir instead of Paxlovid because the patient is borderl ine low creatinine clearance for the Paxlovid at this time.
[2023-03-24] MEDS ORDERED: LEVEMIR SC SCH (21:00)
[2023-03-24] MEDS: DIOVAN TAB 80 MG PO SCH (21:25)
[2023-03-24] MEDS: NEURONTIN CAP 300 MG PO SCH (21:26)
[2023-03-24] MEDS: SNACK - Diabetic Appropriate PO SCH (21:26)
[2023-03-24] MEDS: LIPITOR TAB 40 MG PO SCH (21:26)
[2023-03-24] MEDS: ROXICODONE TAB 15 MG PO PRN (21:28)
[2023-03-24] MEDS: DESYREL PO SCH (22:15)
[2023-03-25] MEDS: APRESOLINE TAB 25 MG PO SCH ×2 (03:10→08:29)
[2023-03-25 06:26] LABS: BASOPHILS % (AUTO) 0.4 % (0.2-1.0); EOSINOPHILS # (AUTO) 0.1 x10^3/uL (0.0-0.2); EOSINOPHILS % (AUTO) 1.4 % (0.9-2.9); HEMATOCRIT 22.1 % (36.0-47.0); HEMOGLOBIN 7.2 g/dL (12.0-16.0); LYMPHOCYTES # (AUTO) 1.5 X10^3/uL (1.3-2.9); MEAN CORPUSCULAR HEMOGLOBIN 29.6 pg (27.0-34.0); MEAN CORPUSCULAR HGB CONC 32.5 g/dL (33.0-35.0); MEAN CORPUSCULAR VOLUME 91.1 fL (80.0-100.0); MEAN PLATELET VOLUME 8.1 fL (7.4-11.0); MONOCYTES # (AUTO) 0.6 x10^3/uL (0.3-0.8); MONOCYTES % (AUTO) 11.6 % (0.0-13.0); NEUTROPHILS # (AUTO) 3.3 x10^3/uL (2.2-4.8); NEUTROPHILS % (AUTO) 59.6 % (42.0-75.0); PLATELET COUNT 248 X10^3/uL (150.0-450.0); RED BLOOD COUNT 2.42 X10^6/uL (3.5-5.4); RED CELL DISTRIBUTION WIDTH 16.3 % (11.6-16.5); WHITE BLOOD COUNT 5.5 X10^3/uL (3.6-10.0)
[2023-03-25 06:34] LABS: ALBUMIN 2.1 g/dL (3.4-5.0); CALCIUM 7.9 mg/dL (8.5-10.1); CARBON DIOXIDE 30.8 mmol/L (21-32); COR CA(FOR HYPOALB) 9.4 mg/dL (8.5-10.1); CREATININE 1.49 mg/dL (0.55-1.02); MAGNESIUM 2.1 mg/dL (2.0-2.9); POTASSIUM 4.2 mmol/L (3.5-5.1); TOTAL PROTEIN 6.4 g/dL (6.4-8.2)
--- NOTE | 2023-03-25 08:13 | RAD ---
EXAM:Portable chestHISTORY:DyspneaCOMPARISON: 3FINDINGS:Patient is rotated to the right. Heart is enlarged. No congestive heart failure is identified. No acute alveolar infiltrates or pleural effusions are identified. There is some subsegmental atelectasis abutting the minor fissure in the right upper lobe. Bony thorax is unremarkable.IMPRESSION:Mild cardiomegaly without congestive heart failureNo definite acute infiltratesFocus of subsegmental atelectasis in the right upper lobe abutting theTHIS IS AN ELECTRONICALLY VERIFIED FINAL [id number]/25/2023 8:09 AM - Electronically signed by Blas Nguyen MD
[2023-03-25] MEDS: BUSPAR PO SCH (08:26)
[2023-03-25] MEDS: ASPIRIN EC 81 MG PO SCH (08:28)
[2023-03-25] MEDS: PROTONIX TAB 40 MG PO SCH (08:28)
[2023-03-25] MEDS: COREG TAB 25 MG PO SCH (08:29)
[2023-03-25] MEDS: DIOVAN TAB 80 MG PO SCH (08:29)
[2023-03-25] MEDS: MAG-OX TAB PO SCH (08:30)
[2023-03-25] MEDS: LASIX IVP SCH (08:31)
[2023-03-25 10:11] VITALS: BP 179/77; PULSE 62; RESP 20; TEMP 97.8; O2SAT 91
[2023-03-25] MEDS: PATIENT'S HOME MEDICATION PO SCH (10:26)
[2023-03-25] MEDS: LINZESS PO SCH (10:26)
[2023-03-25] MEDS: NS 250 ML IV 250 ML IV SCH (10:26)
[2023-03-25] MEDS: LEVAQUIN PREMIX IV 250 MG 250 MG/50 ML BAG IV SCH (10:27)
--- NOTE | 2023-03-25 10:30 | PCM.DCPLAN ---
DISCHARGE SUMMARY Admission Date Date of Admission: 03/18/23 Discharge Date Discharge Date: 03/25/23 Admission Diagnoses (1) Acute exacerbation of CHF (congestive heart failure): Status: Acute (2) Acute UTI: Status: Acute (3) Anemia: Status: Acute (4) Dyspnea: Status: Resolved (5) Hypoxia: Status: Acute (6) Essential hypertension: Status: Acute (7) Insulin dependent type 2 diabetes mellitus: Status: None (8) Pulmonary infiltrate on chest x-ray: Status: Acute (9) COVID-19: Status: Acute Discharge Diagnoses Discharge Diagnosis: 1. COVID19 2. CHF exacerbation 3. Grade 1 (impaired) diastolic dysfunction/diastolic heart failure with calculated EF 56% 4. Pulmonary infiltrate on chest x-ray 5. UTI 6. Insulin-dependent diabetes mellitus type 2 7. Essential hypertension 8. Hypoxia 9. Chronic kidney disease stage IIIb 10. Chronic anemia secondary to chronic kidney disease 11. Hyperkalemia now resolved 12. Hypoglycemia now resolved 13. Bronchitis 14. Severe pulmonary hypertension Discharge Medications Discharge Medications: Home Medication List amlodipine 5 mg tablet 5 mg PO QDAY #30 tabs 03/25/23 [Rx] amoxicillin 500 mg-potassium clavulanate 125 mg tablet 1 tab PO BID 7 days #14 tabs 03/25/23 [Rx] furosemide 40 mg tablet 40 mg PO BID 30 days #60 tabs 03/25/23 [Rx] hydralazine 25 mg tablet 25 mg PO Q6HR 30 days #120 tabs 03/25/23 [Rx] insulin detemir U-100 100 unit/mL subcutaneous solution (Levemir U-100 Insulin) 10 unit (0.1 mL) subcut QHS #1 EACH 03/25/23 [Rx] valsartan 80 mg tablet 80 mg PO QDAY 30 days #30 tabs 03/25/23 [Rx] Prescriptions: hydralazine FELTON,JIHAN amlodipine FELTON,JIHAN amoxicillin-pot clavulanate FELTON,JIHAN furosemide FELTON,JIHAN insulin detemir U-100 [Levemir U-100 Insulin] FELTON,JIHAN valsartan FELTON,JIHAN Hospital Course Vital Signs: Vital Signs Temperature 98.2 F Pulse Rate [Brachial] 55 Respiratory Rate 18 Blood Pressure [Left Arm] 121/59 O2 Sat by Pulse Oximetry 95 Latest Lab Results: Laboratory Last Values WBC 5.5 X10^3/uL (3.6-10.0) 03/25/23 05:44 RBC 2.42 X10^6/uL (3.5-5.4) L 03/25/23 05:44 Hgb 7.2 g/dL (12.0-16.0) L 03/25/23 05:44 Hct 22.1 % (36.0-47.0) L 03/25/23 05:44 MCV 91.1 fL (80.0-100.0) 03/25/23 05:44 MCH 29.6 pg (27.0-34.0) 03/25/23 05:44 MCHC 32.5 g/dL (33.0-35.0) L 03/25/23 05:44 RDW 16.3 % (11.6-16.5) 03/25/23 05:44 Plt Count 248 X10^3/uL (150.0-450.0) 03/25/23 05:44 MPV 8.1 fL (7.4-11.0) 03/25/23 05:44 Neut % (Auto) 59.6 % (42.0-75.0) 03/25/23 05:44 Lymph % (Auto) 27.0 % (21.0-51.0) 03/25/23 05:44 [place] % (Auto) 11.6 % (0.0-13.0) 03/25/23 05:44 Eos % (Auto) 1.4 % (0.9-2.9) 03/25/23 05:44 Baso % (Auto) 0.4 % (0.2-1.0) 03/25/23 05:44 Neut # (Auto) 3.3 x10^3/uL (2.2-4.8) 03/25/23 05:44 Lymph # (Auto) 1.5 X10^3/uL (1.3-2.9) 03/25/23 05:44 [place] # (Auto) 0.6 x10^3/uL (0.3-0.8) 03/25/23 05:44 Eos # (Auto) 0.1 x10^3/uL (0.0-0.2) 03/25/23 05:44 Baso # (Auto) 0.0 X10^3/uL (0.0-0.1) 03/25/23 05:44 Absolute Nucleated RBC 0.2 /100WBC 03/25/23 05:44 Absolute Retic 0.0668 10^6/uL 03/20/23 21:30 Percent Retic 2.74 % (0.8-2.2) H 03/20/23 21:30 Sample Site Rbra 03/22/23 11:08 ABG pH 7.380 (7.35-7.45) 03/22/23 11:08 ABG pCO2 48.0 mmHg (35.0-45.0) H 03/22/23 11:08 ABG pO2 68.0 mmHg (80.0-100.0) L 03/22/23 11:08 ABG HCO3 28.4 mmol/L (22-26) H 03/22/23 11:08 ABG O2 Saturation 93.0 % (90-100) 03/22/23 11:08 ABG Base Excess 2.6 mmol/L (-2.0-2.0) H 03/22/23 11:08 Seth Test N/a 03/22/23 11:08 A-a Gradient 22.0 mmHg 03/22/23 11:08 FiO2 21.0 03/22/23 11:08 Blood Gas Comments Pt maria g well elj cdn 03/22/23 11:08 Sodium 139 mmol/L (136-145) 03/25/23 05:44 Corrected Sodium 140 mmol/L (136-145) 03/25/23 05:44 Potassium 4.2 mmol/L (3.5-5.1) 03/25/23 05:44 Chloride 102 mmol/L (98-107) 03/25/23 05:44 Carbon Dioxide 30.8 mmol/L (21-32) 03/25/23 05:44 BUN 43 mg/dL (7-18) H 03/25/23 05:44 Creatinine 1.49 mg/dL (0.55-1.02) H 03/25/23 05:44 Est GFR (MDRD) Af Amer 45 (>60) L 03/25/23 05:44 Est GFR (MDRD) Non-Af 37 (>60) L 03/25/23 05:44 Glucose 126 mg/dL (65-99) H 03/25/23 05:44 POC Glucose (mg/dL) 132 mg/dL (65-99) H 03/25/23 05:10 Lactic Acid 0.7 mmol/L (0.4-2.0) 03/19/23 08:51 Calcium 7.9 mg/dL (8.5-10.1) L 03/25/23 05:44 Corrected Calcium 9.4 mg/dL (8.5-10.1) 03/25/23 05:44 Magnesium 2.1 mg/dL (2.0-2.9) 03/25/23 05:44 Iron 15 ug/dL (50-175) L 03/20/23 21:30 Ferritin 181 ng/mL (8-252) 03/20/23 21:30 Total Bilirubin 0.20 mg/dL (0.2-1.0) 03/25/23 05:44 AST 9 Units/L (15-37) L 03/25/23 05:44 ALT 7 Units/L (12-78) L 03/25/23 05:44 Alkaline Phosphatase 133 Units/L (46-116) H 03/25/23 05:44 Troponin I High Sens 16.0 ng/L (4.0-60.0) 03/18/23 13:08 B-Natriuretic Peptide 4250 pg/mL (0-79) H 03/25/23 05:44 Total Protein 6.4 g/dL (6.4-8.2) 03/25/23 05:44 Albumin 2.1 g/dL (3.4-5.0) L 03/25/23 05:44 Globulin 4.3 g/dL (2.5-4.5) 03/25/23 05:44 Albumin/Globulin Ratio 0.5 Ratio (1.1-2.1) L 03/25/23 05:44 Lipase 110 Units/L (16-77) H 03/18/23 13:08 Vitamin B12 509 pg/mL (193-986) 03/20/23 21:30 Folate 7.6 ng/mL (>8.6) L 03/20/23 21:30 Specimen Type Clean catch urine 03/18/23 17:50 Urine Color Straw (YELLOW) 03/18/23 17:50 Urine Appearance Hazy (CLEAR) 03/18/23 17:50 Urine pH 6.0 (5.0 - 8.0) 03/18/23 17:50 Ur Specific [place] 1.015 (1.000-1.030) 03/18/23 17:50 Urine Protein 2+ (NEGATIVE) 03/18/23 17:50 Urine Glucose (UA) 2+ (NEGATIVE) 03/18/23 17:50 Urine Ketones Negative (NEGATIVE) 03/18/23 17:50 Urine Blood 2+ (NEGATIVE) 03/18/23 17:50 Urine Nitrite Negative (NEGATIVE) 03/18/23 17:50 Urine Bilirubin Negative (NEGATIVE) 03/18/23 17:50 Urine Urobilinogen Normal (NORMAL) 03/18/23 17:50 Ur Leukocyte Esterase 3+ (NEGATIVE) 03/18/23 17:50 Urine RBC 5-10 /HPF (0-3) A 03/18/23 17:50 Urine WBC Tntc /HPF (0-5) A 03/18/23 17:50 Ur Squamous Epith Cells Rare /HPF (NEGATIVE) 03/18/23 17:50 Urine Bacteria Trace /HPF (NEGATIVE) 03/18/23 17:50 Urine Yeast Rare /HPF (NEGATIVE) 03/18/23 17:50 Ur Culture Indicated? No/not indicated 03/18/23 17:50 Stl Occult Blood (IFOB) Negative (NEGATIVE) 03/22/23 12:21 Resp Viral Panel (PCR) See scanned report 03/19/23 09:19 Hospital Course: This is a 67-year-old black female well-known to me. She has a history of insulin-dependent diabetes mellitus type 2 is poorly controlled. Earlier in the day, she was at the wound care clinic in [place], [place], and it was noted that she is having a lot of generalized edema she was told by people there that she needed to go to the emergency department for them to get some fluid off of her. She came to the [facility] emergency department to have this done and the work-up found that she was anemic with a hemoglobin of 7.9 and a BNP was elevated at 2380. Her creatinine was slightly elevated at 1.47 and BUN was 45. She was found to have a urinary tract infection and to be hypoxic as well. Chest x-ray showed that she was fluid overloaded and because of all this we elected to go ahead and admit her for observation and start diuresis. She was given Lasix 40 mg IV every 12 hours and Hep-Lock her IV. I started her on Entresto twice daily as well, and we will plan on repeating routine labs as well as a chest x-ray and BNP tomorrow morning. Regarding the UTI the patient is being covered with Rocephin 1 g IV daily. We will follow-up with the culture when available. We will monitor daily CBCs to follow her hemoglobin and transfuse if needed. Her blood pressure is elevated upon admission so we will keep an eye on it and adjust her blood pressure medications as needed. We will give her supplemental O2 for hypoxia and watch for improvement. The patient had no significant change during her hospital stay. Her BNP went up after diuresis instead of coming down so we had echocardiogram and found that she has diastolic dysfunction. She has preserved left ventricular systolic function with ejection fraction of 54%. The echocardiogram also showed that the patient had severe pulmonary hypertension. We tried the patient on Entresto with added spironolactone 25 mg daily to try and get her BNP down. However, her potassium started to raise up so it was discontinued. Patient had previously been on valsartan 160 mg daily. I think because of her chronic kidney disease stage IIIb with a high dose valsartan is what caused her potassium to become elevated. The patient's valsartan was held for few days but for some reason her potassium ended up going up so we have given her Kayexalate. We not having to give her 2 doses of 30 g of that. This did bring her potassium down to back to normal level. Her creatinine started increasing earlier in the visit so we decreased her Lasix to 40 mg once a day from twice daily however her BNP started climbing again. I think this patient normally runs an elevated BNP gets she came in over 1999 and was fairly comfortable at this range we ended up finding out she had COVID-19 this was likely the source of her dyspnea and shortness of breath that she had with her presenting symptoms through the [facility] emergency department. She is also having an anemia with hemoglobin is chronically in the upper sevens so I did give her an injection of Procrit 20,000 units yesterday however her hemoglobin has dropped to 7.2 this morning but she remains hemodynamically stable. Her BNP is still above 4000 today but the patient is comfortable her lungs are clear and chest x-ray shows no evidence of heart failure changes in the lungs. We are going arrange her discharge medications differently and we will start her on sildenafil 100 mg daily for her severe pulmonary hypertension. Will continue her on her potassium 40 mg p.o. twice daily and I will decrease her valsartan to 80 mg p.o. daily. I am also going to decrease her Levemir to 10 units at bedtime as she has been having episodes of hypoglycemia in the hospital. For her mild bronchitis she will be covered with Augmentin 500 mg twice daily for 7 days. I am changing her amlodipine from 5 mg twice daily to 5 mg daily. I will recheck her in my office in a week for hospital follow-up. She has any trouble getting worse prior to that she is to call my office so we can try to get her in sooner or if I am not available for her to go to the closest emergency department for further evaluation.
[2023-03-25] MEDS: DIFLUCAN 100 MG IV (MIX by PHARMACY)* 100 MG/50 ML BAG IV SCH (11:26)
[2023-03-25] MEDS: ROCEPHIN VIAL 1 GRAM 1 G in NS 100 ML IV 100 ML IV SCH (11:26)
[2023-03-25] MEDS: VIBRAMYCIN 100 MG in D5W 250 ML IV 250 ML IV SCH (11:27)
== END 2023-03-25 11:00 | disposition home health service (06) | DRG 291 ==
LOC: ER 12:09 → MED/SURG 15:14
PROVIDERS: ADMIT Family Medicine; ATTEND Family Medicine
DX: B37.89 Other sites of candidiasis; N17.8 Other acute kidney failure; E11.65 Type 2 diabetes mellitus with hyperglycemia; E11.22 Type 2 diabetes mellitus with diabetic chronic kidney disease; N18.31 Chronic kidney disease, stage 3a; I50.89 Other heart failure; L97.818 Non-pressure chronic ulcer of other part of right lower leg with other specified severity; U07.1 COVID-19; R60.0 Localized edema; R06.02 Shortness of breath; R09.02 Hypoxemia; R91.8 Other nonspecific abnormal finding of lung field; I13.0 Hypertensive heart and chronic kidney disease with heart failure and stage 1 through stage 4 chronic kidney disease, or unspecified chronic kidney disease; D64.89 Other specified anemias; Z79.4 Long term (current) use of insulin